=== PATIENT | male | born 1975 | race Caucasian/White ===

== ENCOUNTER → 2020-01-07 09:17 | Outpatient (BNVA) | payer OTHER, SELFPAY | PROVIDERS: PCP Internal Medicine; Referring Provider Internal Medicine; Visit Provider Orthopaedic Surgery | DX: Z76.89 Persons encountering health services in other specified circumstances (principal) ==

== ENCOUNTER → 2020-02-18 08:58 | Outpatient (BNVA) | payer OTHER, SELFPAY | PROVIDERS: PCP Internal Medicine; Referring Provider Internal Medicine; Visit Provider Orthopaedic Surgery | DX: Z76.89 Persons encountering health services in other specified circumstances (principal) ==

== ENCOUNTER 2020-02-22 08:00 | Outpatient (RCR) | payer OTHER, SELFPAY ==
--- NOTE | 2020-02-22 10:00 | MHC.PT.DC ---
[facility] [place] Office [place] Office [place] Office [address] Monica Schafer [address] [facility] [phone] F: [phone] F: [phone] F: [phone] F: [phone] Physical Therapy Discharge Report Diagnosis: ACL reconstruction L knee Date of Surgery: 10/14/19 Date of Evaluation: 10/22/19 Date of Discharge: 02/22/20 Treatments to Date: 35 Cancellations to Date: 0 No Shows to Date: 0 Discharge Status: Achieved Goals Improved Function Discharge Summary: Pt has achieved all goals set for him and is independent with all exercises. He is functionally independent and has returned to PLOF. Pt discharged from therapy today. Electronically signed by: Thais Alonso DPT Please sign and return to therapist. Thank you for your referral.
== END 2020-02-22 10:02 | disposition other institution (70) ==
LOC: HO.PT 08:00
PROVIDERS: PCP Internal Medicine; Visit Provider Physician Assistant
DX: S83.512D Sprain of anterior cruciate ligament of left knee, subsequent encounter (principal)
CPT/HCPCS: 97110; 97140; 97530

== ENCOUNTER → 2020-03-28 08:49 | Outpatient (BNVA) | payer OTHER, SELFPAY | PROVIDERS: PCP Internal Medicine; Visit Provider Orthopaedic Surgery ==

== ENCOUNTER → 2020-04-19 10:00 | Outpatient (BNVA) | payer OTHER, SELFPAY | PROVIDERS: Visit Provider Physician Assistant ==

== ENCOUNTER 2020-04-19 10:59 | Outpatient (REF) | payer OTHER, SELFPAY ==
--- NOTE | ~2020-04-19 | XR_ITS ---
EXAMINATION: XR RIBS, LEFT CLINICAL INFORMATION: Fall COMPARISON: None TECHNIQUE: 3 views of the left ribs were obtained. FINDINGS: Lungs are clear. No consolidation, pneumothorax, or pleural effusion. The cardiomediastinal silhouette and pulmonary vasculature are normal. No acute fracture is seen. There is slight cortical irregularity of the left anterior ninth rib questionable for old trauma. XR/XR ribs LT min 3V w CXR1V IMPRESSION: No evidence for acute disease in the chest. No acute rib fracture is seen.
== END 2020-04-19 11:00 | disposition home or self-care (01) ==
LOC: HO.XRAY 10:59
PROVIDERS: PCP Internal Medicine; Visit Provider Physician Assistant Medical
DX: S89.92XA Unspecified injury of left lower leg, initial encounter (principal); W19.XXXA Unspecified fall, initial encounter; X58.XXXA Exposure to other specified factors, initial encounter; Y93.9 Activity, unspecified; Y92.9 Unspecified place or not applicable; Y99.9 Unspecified external cause status
CPT/HCPCS: 71101

== ENCOUNTER → 2020-04-19 10:59 | Outpatient (BNVA) | payer OTHER, SELFPAY | PROVIDERS: Visit Provider Physician Assistant Medical | DX: S20.219A Contusion of unspecified front wall of thorax, initial encounter (principal); S93.492A Sprain of other ligament of left ankle, initial encounter; W00.0XXA Fall on same level due to ice and snow, initial encounter | CPT/HCPCS: 99203 ==

== ENCOUNTER → 2020-05-09 08:52 | Outpatient (BNVA) | payer OTHER, SELFPAY | PROVIDERS: Visit Provider Orthopaedic Surgery | DX: Z98.890 Other specified postprocedural states (principal) | CPT/HCPCS: 99212 ==

== ENCOUNTER 2020-06-07 07:41 | Outpatient (REF) | payer OTHER, SELFPAY ==
[2020-06-07 08:54] LABS: Basophils Percent Auto 0.5 % (0-2); Eosinophils Absolute Auto 0.2 X10*3/uL (0.0-0.4); Eosinophils Percent Auto 2.1 % (0-4); Hematocrit 47.9 % (42-52); Hemoglobin 15.7 g/dl (14.0-18.0); Imm Gran Abs Auto 0.02 X10*3/uL (0.00-0.03); Imm Gran Pct Auto 0.2 % (0.0-0.4); Lymphocytes Absolute Auto 2.7 X10*3/uL (1.2-4.9); Lymphocytes Percent Auto 31.7 % (20-40); MANUAL DIFF FLAG NO; Mean Corpuscular HGB Conc 32.8 g/dl (31.0-36.0); Mean Corpuscular Hemoglobin 30.2 pg (27.0-33.0); Mean Corpuscular Volume 92.1 fL (80-98); Mean Platelet Volume 10.8 fL (9.4-12.4); Monocytes Absolute Auto 0.9 X10*3/uL (0.1-1.2); Monocytes Percent Auto 10.9 % (2-11); Neutrophils Absolute Auto 4.6 X10*3/uL (2.0-8.3); Neutrophils Percent Auto 54.6 % (45-73); Platelet Count 295 X10*3/uL (160-400); Red Cell Distribution Width 12.3 % (11.0-16.0); White Blood Count 8.4 X10*3/uL (4.8-10.8)
[2020-06-07 09:16] LABS: Alanine Aminotransferase 12 U/L (0-40); Albumin Level 4.4 g/dL (3.5-5.0); Alkaline Phosphatase 70 U/L (39-117); Anion Gap 14 (12-20); Aspartate Amino Transferase 26 U/L (5-37); Bilirubin Total 0.9 mg/dL (0.0-1.0); Blood Urea Nitrogen 12 mg/dL (9-16); C Reactive Protein 0.03 mg/dL (< or = 0.50); Calcium 9.6 mg/dL (8.4-10.2); Carbon Dioxide 27 mmol/L (22-29); Chloride 101 mmol/L (96-108); Cholesterol 217 mg/dL; Estimated Glomerular Filt Rate > 60; Glucose Fasting 100 mg/dL (60-99); HDL Cholesterol 56 mg/dL; LDL Cholesterol Calculated 146 mg/dl; Lipase 20 U/L (8-78); Potassium 4.4 mmol/L (3.3-5.1); Sodium 138 mmol/L (135-145); Total Protein 7.6 g/dL (6.5-8.0); Triglycerides 76 mg/dL
[2020-06-07 09:41] LABS: Free T4 (Free Thyroxine) 0.85 ng/dL (0.71-1.85); Thyroid Stimulating Hormone 0.97 uIU/mL (0.32-4.0)
== END 2020-06-07 07:42 | disposition home or self-care (01) ==
LOC: HO.LAB 07:41
PROVIDERS: PCP Internal Medicine; Visit Provider Internal Medicine
DX: R00.2 Palpitations (principal); R63.4 Abnormal weight loss; L40.9 Psoriasis, unspecified; K21.9 Gastro-esophageal reflux disease without esophagitis; Z82.49 Family history of ischemic heart disease and other diseases of the circulatory system
CPT/HCPCS: 36415; 80053; 80061; 82550; 83690; 84439; 84443; 85025; 86140

== ENCOUNTER 2020-06-09 10:27 | Outpatient (REF) | payer OTHER, SELFPAY ==
--- NOTE | ~2020-06-09 | FL_ITS ---
EXAMINATION: XR GI SERIES CLINICAL INFORMATION: Epigastric pain. COMPARISON: None TECHNIQUE: Routine upper GI air-contrast study was performed upright and lying position. FINDINGS: Following oral administration of thick barium and effervescent granules, there is normal antegrade flow seen through the entire esophagus without any evidence of obstruction or narrowing. On placing patient supine and prone, the course, caliber and peristalsis of the stomach, duodenal bulb and sweep are normal. There is small gastroesophageal reflux in the distal esophagus. The mucosal pattern of the stomach, duodenal bulb and the sweep is normal. FLUOROSCOPY TIME: 2.0 minutes DOSE AREA PRODUCT: 37.466 uGy-m2 (microgray-meter squared) FL/FL upper GI series IMPRESSION: Mild gastroesophageal reflux without hiatal hernia. Rest of the upper GI air-contrast study is normal.
== END 2020-06-09 10:28 | disposition home or self-care (01) ==
LOC: HO.XRAY 10:27
PROVIDERS: PCP Internal Medicine; Visit Provider Internal Medicine
DX: R10.13 Epigastric pain (principal)
CPT/HCPCS: 74240

== ENCOUNTER 2020-08-16 09:55 | Outpatient (REF) | payer OTHER, SELFPAY ==
--- NOTE | ~2020-08-16 | US_ITS ---
EXAMINATION: US ABDOMEN COMPLETE CLINICAL INFORMATION: Epigastric pain. COMPARISON: None TECHNIQUE: Real-time imaging of the abdominal viscera. FINDINGS: PANCREAS: The head and the body of the pancreas are homogeneous in echotexture. The tail is obscured by overlying gas. ABDOMINAL AORTA: The proximal, mid, and distal segments are normal in caliber. INFERIOR VENA CAVA: Visualized portions are normal. LIVER: Normal. The liver is normal in size. The liver contour is normal. Parenchymal echogenicity is normal. No focal hepatic lesion. There is no intrahepatic biliary duct dilatation seen. GALLBLADDER: Gallbladder wall thickness is 0.2 cm. The gallbladder is physiologically distended without evidence of stones, sludge, polyps, wall thickening or pericholecystic fluid. COMMON BILE DUCT: Normal in caliber measuring 0.3 cm in diameter. RIGHT KIDNEY: There is an anechoic cyst in the midpole medially with septations measuring 2.1 x 1.6 x 1.6 cm. No hydronephrosis or renal calculi. The kidney measures 10.0 cm in maximum dimension. LEFT KIDNEY: Normal. No hydronephrosis. No renal calculi or focal parenchymal lesions. The kidney measures 10.9 cm in maximum dimension. SPLEEN: Normal. The spleen measures 12.4 cm in maximum dimension. FREE FLUID: None. US/US abdomen complete IMPRESSION: Complex cyst midpole right kidney. The tail of the pancreas is not well visualized. The rest of the abdominal ultrasound is unremarkable.
== END 2020-08-16 09:56 | disposition home or self-care (01) ==
LOC: HO.US 09:55
PROVIDERS: PCP Internal Medicine; Visit Provider Internal Medicine
DX: R10.13 Epigastric pain (principal)
CPT/HCPCS: 76700

== ENCOUNTER 2020-08-28 07:42 | Day surgery (SDC) | payer OTHER, SELFPAY ==
--- NOTE | 2020-08-24 09:50 | HO.ANESPROP2 ---
HPI - Anesthesia Eval Consult details Narrative: 44yo M for Upper Endoscopy PMFSH Active Problems Active Problems: All Active Problems (Updated 04/19/20 @ 11:54 by ELY Diaz) Fall (Acute) Internal derangement of left knee (Acute) S/P ACL reconstruction (Acute) Deficiency of anterior cruciate ligament of left knee (Acute) Past Medical History Medical History Internal derangement of left knee Surgical History Surgical History History of appendectomy S/P ACL reconstruction Social History Social History Patient Tobacco Use Status: Former Tobacco user Use of substances other than those prescribed or required for medical reasons: No Have you been hit, kicked, punched, or otherwise hurt by someone within the past year? If so, by whom?: No Are you DNR?: No Advance Directives: No Advance Directives Date on File: 12/09/19 Current occupational status: employed Current occupation: [employer] - Right [employer] Meds Allergies Allergy/AdvReac Type Severity Reaction Status Date / Time bee pollen [BEE STINGS] Allergy Unknown WEAKNESS,SW Verified 08/28/20 09:34 ELLING bees Allergy Unknown ANAPHYLACTIC Uncoded 08/28/20 09:34 REACTION SEAFOOD Allergy Unknown LOCALIZED Uncoded 08/28/20 09:34 TO ABDOMEN seasonal Allergy Unknown HAYFEVER Uncoded 08/28/20 09:34 SEASONAL ALLERGIES Allergy Unknown HAYFEVER Uncoded 08/28/20 09:34 shellfish Allergy Unknown INDIGESTION Uncoded 08/28/20 09:34 Home Medications Medication Instructions Recorded Confirmed Last Taken Type adalimumab SUBCUT 01/06/20 Unknown History Exam Exam Date and Time: August 24, 2020 0950 Assessment and Plan Assessment Anesthesia Assessment: Chart Reviewed
[2020-08-28 08:56] VITALS: BP 124/86; PULSE 90; RESP 18; TEMP 37.2; O2SAT 98; BMI 25.7
[2020-08-28] MEDS: Lactated Ringers 1,000 ML 100 ML IVCONT (09:15)
--- NOTE | 2020-08-28 09:53 | HO.ANESPROP2 ---
[facility] Active Problems Active Problems: All Active Problems (Updated 04/19/20 @ 11:54 by ELY Diaz) Fall (Acute) Internal derangement of left knee (Acute) S/P ACL reconstruction (Acute) Deficiency of anterior cruciate ligament of left knee (Acute) Past Medical History Medical History Internal derangement of left knee Family History Family history of problems with anesthesia: No Surgical History Surgical History History of appendectomy S/P ACL reconstruction History of Problems with Anesthesia: Yes (PONV) Social History Social History Patient Tobacco Use Status: Former Tobacco user Use of substances other than those prescribed or required for medical reasons: No Have you been hit, kicked, punched, or otherwise hurt by someone within the past year? If so, by whom?: No Are you DNR?: No Advance Directives: No Advance Directives Date on File: 12/09/19 Current occupational status: employed Current occupation: [employer] - Right [employer]ed Meds Allergies Allergy/AdvReac Type Severity Reaction Status Date / Time bee pollen [BEE STINGS] Allergy Unknown WEAKNESS,SW Verified 08/28/20 09:34 ELLING bees Allergy Unknown ANAPHYLACTIC Uncoded 08/28/20 09:34 REACTION SEAFOOD Allergy Unknown LOCALIZED Uncoded 08/28/20 09:34 TO ABDOMEN seasonal Allergy Unknown HAYFEVER Uncoded 08/28/20 09:34 SEASONAL ALLERGIES Allergy Unknown HAYFEVER Uncoded 08/28/20 09:34 shellfish Allergy Unknown INDIGESTION Uncoded 08/28/20 09:34 Active Medications: Current Medications Generic Name Dose Route Start Last Admin Trade Name Freq PRN Reason Stop Dose Admin Lactated Ringer's 1,000 mls @ 100 mls/hr 08/28/20 06:30 08/28/20 09:15 Lr IVCONT 100 mls/hr .Q10H GURINDER Administration Sodium Biphosphate/Sodium Phosphate 133 ml 08/28/20 06:16 Sodium Phosphate,[place]-Dibasic 133 Ml Enema MD ONCE PRN Poor Colonoscopy Prep Results Home Medications Medication Instructions Recorded Confirmed Last Taken Type adalimumab SUBCUT 10/29/20 Unknown History Exam Exam Date and Time: August 28, 2020 0953 Height,Weight and Vital Signs: Height 6 ft Weight 86.183 kg Last Vital Signs Temp 98.9 F 08/28/20 08:56 Pulse 90 08/28/20 08:56 Resp 18 08/28/20 08:56 BP 124/86 08/28/20 08:56 Pulse Ox 98 08/28/20 08:56 Airway Mallampati Class: I TM Dist: >3cm Neck ROM: Full Loose/Missing/Broken Teeth: No Assessment and Plan Assessment Anesthesia Assessment: Anesthesia Plan Discussed and Chart Reviewed Final Anesthetic Review NPO: Yes ASA Class: II Final Preanesthetic Review: No Changes in Pt Med Stat, Meds/Allgs Chart Reviewed, Consent Obtained/Reviewed and Anes Risks/Benef Reviewed Patient Risk: Low Procedure Risk: Intermediate Anesthetic Plan Anesthetic Plan: MAC: and Agree w/ Assess. and Plan Disposition: Standard PACU
[2020-08-28 10:19] VITALS: BP 143/90; PULSE 82; RESP 18; TEMP 36.9; O2SAT 98
--- NOTE | 2020-08-28 10:27 | PM.OP ---
Brief Operative Note Date of Service: 08/28/20 Pre-op diagnosis: GERD Post-op diagnosis: other (Hiatal hernia, GERD, R/O Gastritis) Procedure: EGD with biopsies Surgeon: Robert Snider Anesthesia: MAC Was an Business Management Manager used for this Procedure?: No Estimated blood loss (mL): 3.0 Pathology: other (A. Gastric antrum B. EG Junction at 40cm) Condition: stable Disposition: PACU
[2020-08-28] MEDS: Acetaminophen 325 MG TABLET 650 MG PO (10:29)
[2020-08-28 10:34] VITALS: BP 123/79; PULSE 76; RESP 14; TEMP 36.9; O2SAT 100
--- NOTE | 2020-08-28 20:57 | OP_ITS ---
SURGEON: Robert Snider MD INDICATIONS: The patient presents for evaluation of gastroesophageal reflux and abdominal discomfort. Full consent has been obtained from him for this, including risks of bleeding and perforation. PREOPERATIVE DIAGNOSIS: Gastroesophageal reflux and abdominal discomfort. POSTOPERATIVE DIAGNOSIS: Gastroesophageal reflux and abdominal discomfort, small hiatal hernia, rule out gastritis and/or H pylori. PROCEDURE PERFORMED: Esophagogastroduodenoscopy with biopsies. ESTIMATED BLOOD LOSS: COMPLICATIONS: ANESTHESIA: Monitored anesthesia care. ASSISTANTS: SPECIMENS: DESCRIPTION OF PROCEDURE: The patient was placed in the left lateral decubitus position. The Olympus video gastroscope was passed in the posterior oropharynx and upper esophagus under direct vision. The scope was passed slowly to the distal esophagus. The gastroesophageal junction appeared at 40 cm. There was some slight irregularity consistent with reflux, but there was no evidence of esophagitis nor any definitive evidence of Tinoco's mucosa. There was a small hiatal hernia. The scope was advanced to the pylorus and the duodenum was cannulated to the descending portion. The duodenum including the bulb was carefully inspected and appeared normal without mass or ulceration. The scope was withdrawn back to the stomach. The gastric antrum had some mild areas of erythema, but no erosions or ulceration. There was good peristalsis. Biopsies were obtained from the gastric antrum. The scope was retroflexed visualizing the proximal stomach carefully, which appeared normal, without any sign of mass or ulceration. The scope was straightened and withdrawn back to the esophagus. Biopsies were obtained at the EG junction at 40 cm. Proximal to this, the esophageal mucosa appeared normal. The scope was withdrawn from the patient. He tolerated the procedure well and was returned to the recovery area in stable condition. IMPRESSION: 1. Small hiatal hernia, gastroesophageal reflux. 2. Rule out gastritis and/or Helicobacter pylori. PLAN: The results of the biopsy will be checked. He will continue his omeprazole 20 mg b.i.d. His recent abdominal ultrasound was negative for gallstones but did show a cyst in the right kidney that is described as complex . I did review this with the patient today and he has seen the result himself on the [facility] portal as well. I have advised him that he will need to follow up with Dr. Syed as to whether or not he would need a followup ultrasound and/or a urology consultation in regard to the renal cyst. This has been discussed with his as well. From a GI standpoint, he appears to be doing well. I did advise him that he can see me again in 2 to 3 months for a followup visit. If Helicobacter pylori is present in the gastric biopsies, I would not necessarily treat that and would rather see how he is doing from a clinical standpoint first since there is no sign of ulcer disease. This has all been discussed with his . MD MARCELA Cole/AMANDA / [id number] MTDD
== END 2020-08-28 11:41 | disposition home or self-care (01) ==
PROVIDERS: PCP Internal Medicine; Visit Provider Internal Medicine
PROC: 0DJ08ZZ Inspection of Upper Intestinal Tract, Via Natural or Artificial Opening Endoscopic (ICD-10-PCS; CPT 43235; principal; 2020-08-28 09:10)
DX: K21.9 Gastro-esophageal reflux disease without esophagitis (principal); K22.70 Barrett's esophagus without dysplasia; K44.9 Diaphragmatic hernia without obstruction or gangrene; I10 Essential (primary) hypertension; N28.1 Cyst of kidney, acquired; Z79.899 Other long term (current) drug therapy; Z87.891 Personal history of nicotine dependence
CPT/HCPCS: 43239; 88305; 88342; J3010

== ENCOUNTER 2020-12-14 14:10 | Outpatient (REF) | payer OTHER, SELFPAY ==
--- NOTE | ~2020-12-14 | MR_ITS ---
EXAMINATION: MR ABDOMEN WITHOUT AND WITH CONTRAST CLINICAL INFORMATION: Follow up complex right renal cyst. COMPARISON: Previous renal ultrasound August 2020. TECHNIQUE: MR abdomen was performed without and with use of 9 mL intravenous Gadavist gadolinium contrast. Postcontrast images are performed in multiphase dynamic sequences. Imaging was performed in 3 planes. FINDINGS: LUNG BASES: The visualized lung bases are unremarkable. LIVER, GALLBLADDER, AND BILIARY TREE: The liver is normal in size and contour. There is slight signal loss in the liver on out of phase sequences suggestive of mild fatty infiltration. There are 2 simple cysts seen in the posterior segment of the right lobe of the liver measuring 5 mm. No other focal liver lesion is seen. The gallbladder is normal. There is no intra or extrahepatic biliary duct dilatation. PANCREAS: Unremarkable. The main pancreatic duct is normal. SPLEEN: Normal. ADRENAL GLANDS: Normal. KIDNEYS AND URETERS: The kidneys are normal in size, shape, and enhance symmetrically. There is a 1.6 x 2 cm cyst in the lower pole of the right kidney. There is low signal on T1-weighted sequences, high signal on T2-weighted sequences and demonstrates a single thin nonenhancing septation. No mural nodule is seen. No hydronephrosis. No perinephric stranding. GASTROINTESTINAL TRACT: There is mild diverticulosis of the colon. No bowel obstruction. No ascites or fluid collection. ABDOMINAL WALL: No significant hernia is appreciated. LYMPH NODES: No lymphadenopathy. VASCULAR: Unremarkable. OSSEOUS STRUCTURES: There is degenerative disc disease of the spine. MR/MR abdomen wo/w con IMPRESSION: 1.6 cm minimally complex cyst in the lower pole of the right kidney with single thin nonenhancing septation or Bosniak type II cyst. This is benign and no imaging follow-up is needed. Small simple liver cysts. Mild fatty infiltration of the liver.
[2020-12-14 14:57] LABS: Anion Gap 13 (12-20); Blood Urea Nitrogen 15 mg/dL (9-16); Calcium 9.6 mg/dL (8.4-10.2); Carbon Dioxide 27 mmol/L (22-29); Chloride 104 mmol/L (96-108); Estimated Glomerular Filt Rate > 60; Glucose Random 107 mg/dL (60-115); Potassium 4.3 mmol/L (3.3-5.1); Sodium 140 mmol/L (135-145)
== END 2020-12-14 14:11 | disposition home or self-care (01) ==
LOC: HO.MRI 14:10
PROVIDERS: PCP Internal Medicine; Visit Provider Internal Medicine
DX: N28.1 Cyst of kidney, acquired (principal)
CPT/HCPCS: 36415; 74183; 80048; A9585

== ENCOUNTER 2021-04-08 15:42 | Emergency (ER) | payer OTHER, SELFPAY ==
[2021-04-08 16:12] VITALS: BP 137/87; PULSE 83; RESP 18; TEMP 36.6; O2SAT 97; BMI 26.4
--- NOTE | 2021-04-08 17:29 | ED_ITS ---
HPI - Extremity Problem General Chief complaint: Extremity Injury, Upper Stated complaint: laceration/wound Time Seen by Provider: 04/08/21 16:24 Source: patient Mode of arrival: ambulatory Limitations: no limitations History of Present Illness HPI Narrative: Patient is a 45 year old male presenting to the emergency department today with a left middle finger laceration. Patient states that earlier today, he was cutting open a package with a razor knife when he cut his left middle finger. Patient denies any other injury from the incident Patient denies any dizziness, numbness, tingling, lightheadedness, abdominal pain, nausea, vomiting, fever, chills, blurry vision, double vision, loss of vision, chest pain, difficulty breathing, shortness of breath, back pain, night sweats, pain with urination, increased urinary frequency, increased urinary urgency, blood in his urine or stool, syncope or a near syncopal episode, bowel incontinence, bladder incontinence, bowel retention, bladder retention, or any other complaints at this time. MD Complaint: extremity pain Onset (ago): hour(s) Pain Consistency: constant Location: left (Middle finger) Severity scale (1-10): 3 Radiation: none Relieving factors: nothing Exacerbating factors: nothing Associated symptoms: denies other symptoms Related Data Home Medications Medication Instructions Recorded Confirmed adalimumab [Humira] SUBCUT 01/06/20 Allergies Allergy/AdvReac Type Severity Reaction Status Date / Time bee pollen [BEE Allergy Unknown WEAKNESS,SW Verified 04/08/21 16:12 STINGS] ELLING bees Allergy Unknown ANAPHYLACTIC Uncoded 04/08/21 16:12 REACTION SEAFOOD Allergy Unknown LOCALIZED Uncoded 04/08/21 16:12 TO ABDOMEN seasonal Allergy Unknown HAYFEVER Uncoded 04/08/21 16:12 SEASONAL ALLERGIES Allergy Unknown HAYFEVER Uncoded 04/08/21 16:12 shellfish Allergy Unknown INDIGESTION Uncoded 04/08/21 16:12 Review of Systems Verdana 4l Constitutional: Verdana 4d Verdana 4d Constitutional: Verdana 4d Reports no additional constitutional complaints, Denies chills, Denies fever(s) and Denies night sweats Verdana 4l Eyes: Verdana 4d Verdana 4d Eyes: Verdana 4d Reports no additional eye complaints, Denies blurry vision, Denies change in vision, Denies diplopia, Denies eye discharge, Denies loss of vision and Denies eye pain Verdana 4l ENT: Verdana 4d Denies dizziness Verdana 4l Cardiovascular: Verdana 4d Verdana 4d Cardiovascular: Verdana 4d Reports no additional cardiovascular complaints, Denies chest pain, Denies lightheadedness, Denies Loss of Consciousness and Denies dyspnea Verdana 4l Respiratory: Verdana 4d Verdana 4d Respiratory: Verdana 4d Reports no additional respiratory complaints and Denies dyspnea Verdana 4l Gastrointestinal: Verdana 4d Verdana 4d Gastrointestinal: Verdana 4d Reports no additional gastrointestinal complaints, Denies abdominal pain, Denies melena, Denies hematochezia, Denies change in bowel habits and Denies change in stool character Verdana 4l Genitourinary: Verdana 4d Verdana 4d Genitourinary: Verdana 4d Reports no additional male genitourinary complaints, Denies hematuria, Denies oliguria, Denies difficulty urinating, Denies dysuria, Denies urinary frequency, Denies urinary hesitancy, Denies urinary incontinenceincontinence and Denies urinary urgency Musculoskeletal: Musculoskeletal: Reports no additional musculoskeletal complaints, Denies numbness and Denies tingling Integumentary/Breasts: Comments: Laceration of the left middle finger Neurologic: Denies dizziness, Denies loss of vision, Denies numbness and Denies tingling Psychiatric: Psychiatric: Reports no additional psychiatric complaints Endocrine: Endocrine: Reports no additional endocrine complaints Hematologic/Lymphatic: Hematologic/Lymphatic: Reports no additional hematologic/lymphatic complaints Allergic/Immunologic: Allergic/Immunologic: Reports no additional allergic/immunologic complaints [facility] Past Medical History Attestation statement: The following information was validated with the patient. Source: old records reviewed Medical History Internal derangement of left knee Surgical History History of appendectomy S/P ACL reconstruction Social History Social History Patient Tobacco Use Status: Former Tobacco user Advance Directives: Yes Advance Directives on File: Yes Advance Directives Date on File: 12/09/19 Current occupational status: employed Current occupation: [employer] - Right Handed Physical Exam Verdana 4l Vital Signs: Verdana 4d Verdana 4d Vital Signs: Verdana 4d Verdana 4Bd Last Vital Signs Verdana 4d Driller Operator New 4d Driller Operator New 4d Temp 97.9 F 04/08/21 16:12 Driller Operator New 4d Pulse 83 04/08/21 16:12 Driller Operator New 4d Resp 18 04/08/21 16:12 BP 137/87 04/08/21 16:12 Pulse Ox 97 04/08/21 16:12 BMI result Body Mass Index 26.4 Skin: Other: 0.25 cm laceration to the palmar aspect of the left middle finger, no active bleeding MDM - Extremity (Nontraumatic) MDM Narrative Medical decision making narrative: Patient is a 45 year old male presenting to the emergency department today with a laceration to his left 3rd finger. Patient's physical exam showed 0.25 cm laceration of ulnar aspect of the left middle finger, no active bleeding. I explained my physical exam findings to the patient. I answered all questions asked by the patient. Patient's the laceration was repaired with Dermabond, per procedure note, without incident. Patient's PMS was intact prior to and after the procedure. I stressed the importance of the patient not getting the affected area wet for at least 7 days. stressed the importance of the patient taking his regular medication as prescribed. I stressed the importance of the patient following up with his primary care provider. I stressed the importance of the patient returning to the emergency department immediately if his symptoms were to worsen or if he were to develop any dizziness, shortness of breath, difficulty breathing, chest pain, blurry vision, loss of vision, nausea, vomiting, abdominal pain, fever, chills, back pain, or any other complaints. Patient verbalized agreement and understanding with this treatment plan and discharge. Differential Diagnosis Differential diagnosis: Unlikely cellulitis (Laceration, abrasion, finger injury) Medical Records Attestation: I reviewed the patient's medical records. Procedures Laceration Laceration 1: Site: hand (left middle finger) Side (If applicable): left Size (cm): 0.25 Description: linear Depth: simple, single layer Pre-repair: irrigated extensively Skin layer closed with: other (durabond) Discharge Plan Discharge Clinical Impression: Laceration of finger Patient Disposition: Home, Self-Care Instructions: Laceration (DC), Finger Laceration (ED) Additional Instructions: Do NOT get the affected area wet for at least 7 days. Referrals: Branden Syed MD [Primary Care Provider] - 2 days Interventions: ED Discharge Assessment Last Done: 04/08/21 18:21 Print Language: Tuvaluan
--- NOTE | 2021-04-08 18:32 | PC.NURSE ---
PT LAC CLEANED AND DERMADONED BY ELY CALLAHAN PACKAGE DYEING MACHINE OPERATOR.
== END 2021-04-08 18:32 | disposition home or self-care (01) ==
PROVIDERS: Emergency Provider Internal Medicine; PCP Internal Medicine
DX: S61.213A Laceration without foreign body of left middle finger without damage to nail, initial encounter (principal); M79.645 Pain in left finger(s); W26.9XXA Contact with unspecified sharp object(s), initial encounter; Y93.9 Activity, unspecified; Y92.9 Unspecified place or not applicable; Y99.9 Unspecified external cause status; Z87.891 Personal history of nicotine dependence
CPT/HCPCS: 12001; 99283

== ENCOUNTER 2022-04-16 09:35 | Outpatient (REF) | payer OTHER, SELFPAY ==
[2022-04-16 10:47] LABS: MANUAL DIFF FLAG NO
[2022-04-16 10:55] LABS: Basophils Absolute Auto 0.1 X10*3/uL (0.0-0.2); Basophils Percent Auto 0.8 % (0-2); Eosinophils Absolute Auto 0.2 X10*3/uL (0.0-0.4); Eosinophils Percent Auto 2.2 % (0-4); Hematocrit 45.7 % (42.0-52.0); Hemoglobin 15.3 g/dl (14.0-18.0); Imm Gran Abs Auto 0.02 X10*3/uL (0.00-0.03); Imm Gran Pct Auto 0.3 % (0.0-0.4); Lymphocytes Absolute Auto 2.4 X10*3/uL (1.2-4.9); Lymphocytes Percent Auto 32.6 % (20-40); Mean Corpuscular HGB Conc 33.5 g/dl (31.0-36.0); Mean Corpuscular Hemoglobin 30.5 pg (27.0-33.0); Mean Corpuscular Volume 91.2 fL (80.0-98.0); Mean Platelet Volume 9.9 fL (9.4-12.4); Monocytes Absolute Auto 0.8 X10*3/uL (0.1-1.2); Monocytes Percent Auto 10.8 % (2-11); Neutrophils Percent Auto 53.3 % (45-73); Platelet Count 279 X10*3/uL (160-400); Red Blood Count 5.01 X10*6/uL (4.60-5.80); Red Cell Distribution Width 12.7 % (11.0-16.0); White Blood Count 7.4 X10*3/uL (4.8-10.8)
[2022-04-16 11:30] LABS: Alanine Aminotransferase 17 U/L (0-40); Albumin Level 4.4 g/dL (3.5-5.0); Alkaline Phosphatase 65 U/L (39-117); Anion Gap 17 (12-20); Aspartate Amino Transferase 28 U/L (5-37); Bilirubin Total 0.9 mg/dL (0.0-1.0); Blood Urea Nitrogen 15 mg/dL (9-16); Calcium 9.5 mg/dL (8.4-10.2); Carbon Dioxide 25 mmol/L (22-29); Chloride 104 mmol/L (96-108); Cholesterol 222 mg/dL; Estimated Glomerular Filt Rate > 60; Glucose Fasting 87 mg/dL (60-99); HDL Cholesterol 53 mg/dL; LDL Cholesterol Calculated 149 mg/dl; Potassium 4.7 mmol/L (3.3-5.1); Sodium 141 mmol/L (135-145); Total Protein 7.4 g/dL (6.5-8.0); Triglycerides 102 mg/dL
[2022-04-16 11:47] LABS: Free T4 (Free Thyroxine) 0.91 ng/dL (0.71-1.85)
== END 2022-04-16 09:36 | disposition home or self-care (01) ==
LOC: HO.10HDL 09:35
PROVIDERS: Visit Provider Internal Medicine
DX: Z00.00 Encounter for general adult medical examination without abnormal findings (principal)
CPT/HCPCS: 36415; 80053; 80061; 84439; 85025

== ENCOUNTER 2022-06-03 10:32 | Day surgery (SDC) | payer OTHER, SELFPAY ==
[2022-06-03 07:11] VITALS: BMI 29.1
[2022-06-03 10:33] VITALS: BP 126/87; PULSE 88; RESP 20; TEMP 36.1; O2SAT 97
[2022-06-03] MEDS: Lactated Ringers 1,000 ML 50 ML IVCONT (10:55)
--- NOTE | 2022-06-03 11:11 | P.CONAN_ITS ---
HPI - Anesthesia Eval Consult details Narrative: for colon screen COUNTS INCLUDE 234 BEDS AT THE [facility] Active Problems Active Problems: All Active Problems (Updated 05/31/22 @ 12:11 by Karie Rodriguez RN) Deficiency of anterior cruciate ligament of left knee (Acute) Fall (Acute) Internal derangement of left knee (Acute) S/P ACL reconstruction (Acute) Past Medical History Medical History (Updated 05/31/22 @ 12:11 by Karie Rodriguez RN) ADHD GERD (gastroesophageal reflux disease) HTN (hypertension) Internal derangement of left knee Prophylactic gland removal Psoriasis Family History Family history of problems with anesthesia: No Surgical History Surgical History (Updated 05/31/22 @ 12:11 by Karie Rodriguez RN) History of appendectomy History of fundoplication S/P ACL reconstruction History of Problems with Anesthesia: No (PONV) Social History Social History Patient Tobacco Use Status: Former Tobacco user Are you DNR?: No Advance Directives: Yes Advance Directives on File: Yes Advance Directives Date on File: 12/09/19 Current occupational status: employed Current occupation: [employer] Allergies Allergy/AdvReac Type Severity Reaction Status Date / Time bee pollen [BEE STINGS] Allergy Unknown Anaphylaxis Verified 05/31/22 12:06 seafood Allergy ABD Verified 05/31/22 12:06 pain/indegestion Seasonal Allergies Allergy hayfever Verified 05/31/22 12:06 Active Medications: Current Medications Lactated Ringer's (Lr) 1,000 mls @ 50 mls/hr IVCONT .Q20H GURINDER Last Admin: 06/03/22 10:55 Dose: 50 mls/hr Sodium Biphosphate/Sodium Phosphate (Sodium Phosphate,[place]umpkin-Dibasic 133 Ml Enema) 133 ml CA ONCE PRN PRN Reason: Poor Colonoscopy Prep Results Home Medications Medication Instructions Recorded Confirmed Last Taken Type adalimumab [Humira] subcut 01/06/20 Unknown History atorvastatin 10 mg tablet 05/31/22 Unknown History guselkumab 100 mg/mL subcutaneous mg subcut 05/31/22 Unknown History syringe (Tremfya) lisinopril 5 mg tablet 5 mg PO DAILY 05/31/22 05/31/22 Unknown History losartan 50 mg tablet 05/31/22 06/03/22 History omeprazole 20 mg capsule,delayed PO 05/31/22 Unknown History release prednisolone acetate 1 % eye 1 drp ophthalmic-Right QID 05/31/22 05/31/22 Unknown History drops,suspension Exam Exam Date and Time: June 03, 2022 1111 Height,Weight and Vital Signs: Height 5 ft 11.5 in Weight 96.162 kg Last Vital Signs Temp 97 F 06/03/22 10:33 Pulse 88 06/03/22 10:33 Resp 20 06/03/22 10:33 BP 126/87 06/03/22 10:33 Pulse Ox 97 06/03/22 10:33 O2 Del Method Room Air 06/03/22 10:33 Airway Mallampati Class: II TM Dist: >3cm Neck ROM: Full Heart: rrr Lungs: cta Assessment and Plan Assessment Anesthesia Assessment: Anesthesia Plan Discussed and Chart Reviewed Final Anesthetic Review Family History of Problems with Anesthesia: No History of Problems with Anesthesia: No (PONV) NPO: Yes ASA Class: II Final Preanesthetic Review: No Changes in Pt Med Stat, Meds/Allgs Chart Reviewed, Consent Obtained/Reviewed and Anes Risks/Benef Reviewed Patient Risk: Low Procedure Risk: Low Anesthetic Plan Anesthetic Plan: MAC: Disposition: Standard PACU
--- NOTE | 2022-06-03 12:46 | P.BOP_ITS ---
Brief Operative Note Date of Service: 06/03/22 Pre-op diagnosis: Screening Post-op diagnosis: other (Polyp) Procedure: Colonoscopy to the cecum and TI with bx/removal of polyp Surgeon: Robert Snider Anesthesia: MAC Was an Billing Customer Service Representative used for this Procedure?: No Estimated blood loss (mL): 2.0 Pathology: other (A. Polyp at 40cm) Condition: stable Disposition: PACU
[2022-06-03 12:47] VITALS: BP 124/89; PULSE 92; RESP 12; TEMP 36.6; O2SAT 97
[2022-06-03 13:02] VITALS: BP 129/90; PULSE 77; RESP 12; TEMP 36.6; O2SAT 99
--- NOTE | 2022-06-03 14:39 | OP_ITS ---
DATE OF SERVICE: 06/03/2022 SURGEON: Robert Snider MD INDICATIONS: The patient presents for evaluation of colorectal cancer screening. Full consent has been obtained from him for this, including risks of bleeding and perforation. PREOPERATIVE DIAGNOSIS: POSTOPERATIVE DIAGNOSIS: PROCEDURE PERFORMED: Colonoscopy to the cecum and terminal ileum with biopsy and removal of polyp. ESTIMATED BLOOD LOSS: COMPLICATIONS: ANESTHESIA: Monitored anesthesia care. ASSISTANTS: SPECIMENS: PREOPERATIVE DIAGNOSES: Colorectal cancer screening. POSTOPERATIVE DIAGNOSES: Colorectal cancer screening, small colon polyp, internal hemorrhoids. DESCRIPTION OF PROCEDURE: The patient was placed in the left lateral decubitus position. The digital rectal exam revealed no abnormalities. The Olympus video pediatric colonoscope was then entered into the rectum and advanced easily to the cecum. Once in the cecum, I did identify a normal-appearing cecal pouch with appendiceal orifice and a normal-appearing ileocecal valve. The terminal ileum was cannulated and appeared normal. The scope was withdrawn back in the colon. The entire cecum and ileocecal valve appeared normal. The scope was slowly withdrawn assessing all mucosal surface carefully. Preparation was excellent. At 40 cm, there was an approximately 4 mm polyp, which was biopsied and completely covered with cold biopsy forceps. I did not visualize any other polyps, colitis, nor angiodysplasia. In the rectum, the scope was retroflexed visualizing internal hemorrhoids, but no other pathology. The rectal mucosa appeared normal. Scope was straightened and withdrawn from the patient. He tolerated the procedure well and was returned to the recovery area in stable condition. IMPRESSION: 1. Colon polyps. 2. Internal hemorrhoids. PLAN: The results of the pathology will be checked. If this is a tubular adenoma, I would recommend a followup colonoscopy in in 5 years. If it is only hyperplastic, I would recommend a followup colonoscopy in 10 years. I will see him in 2023 for a followup endoscopy in regard to his history of reflux and [place] esophagus. He would otherwise see me on a p.r.n. basis. He was advised not to use any aspirin or NSAIDs for 1 week. MD MARCELA Cole/AMANDA / [id number]
== END 2022-06-03 14:52 | disposition home or self-care (01) ==
PROVIDERS: PCP Internal Medicine; Visit Provider Internal Medicine
PROC: 0DJD8ZZ Inspection of Lower Intestinal Tract, Via Natural or Artificial Opening Endoscopic (ICD-10-PCS; CPT 45378; principal; 2022-06-03 11:40)
DX: Z12.11 Encounter for screening for malignant neoplasm of colon (principal); D12.5 Benign neoplasm of sigmoid colon; K64.8 Other hemorrhoids; K21.9 Gastro-esophageal reflux disease without esophagitis; K22.70 Barrett's esophagus without dysplasia; I10 Essential (primary) hypertension; L40.9 Psoriasis, unspecified; J30.2 Other seasonal allergic rhinitis; F90.2 Attention-deficit hyperactivity disorder, combined type; Z79.899 Other long term (current) drug therapy; Z87.891 Personal history of nicotine dependence
CPT/HCPCS: 45380; 88305

== ENCOUNTER 2024-01-05 12:03 | Outpatient (REF) | payer BC, SELFPAY ==
[2024-01-05 12:26] LABS: MANUAL DIFF FLAG NO
[2024-01-05 13:02] LABS: Basophils Absolute Auto 0.1 X10*3/uL (0.0-0.2); Basophils Percent Auto 0.6 % (0-2); Eosinophils Absolute Auto 0.2 X10*3/uL (0.0-0.4); Eosinophils Percent Auto 1.9 % (0-4); Hematocrit 45.7 % (42.0-52.0); Hemoglobin 15.2 g/dl (14.0-18.0); Imm Gran Abs Auto 0.03 X10*3/uL (0.00-0.03); Imm Gran Pct Auto 0.3 % (0.0-0.4); Lymphocytes Absolute Auto 2.5 X10*3/uL (1.2-4.9); Lymphocytes Percent Auto 28.1 % (20-40); Mean Corpuscular HGB Conc 33.3 g/dl (31.0-36.0); Mean Corpuscular Hemoglobin 30.7 pg (27.0-33.0); Mean Corpuscular Volume 92.3 fL (80.0-98.0); Mean Platelet Volume 10.6 fL (9.4-12.4); Monocytes Absolute Auto 0.8 X10*3/uL (0.1-1.2); Monocytes Percent Auto 9.3 % (2-11); Neutrophils Absolute Auto 5.3 x10*3/uL (2.0-8.3); Neutrophils Percent Auto 59.8 % (45-73); Platelet Count 252 X10*3/uL (160-400); Red Blood Count 4.95 X10*6/uL (4.60-5.80); Red Cell Distribution Width 12.7 % (11.0-16.0); White Blood Count 8.9 X10*3/uL (4.8-10.8)
[2024-01-05 13:42] LABS: Alanine Aminotransferase 28 U/L (0-40); Albumin Level 4.7 g/dL (3.5-5.0); Alkaline Phosphatase 62 U/L (39-117); Anion Gap 13 (12-20); Aspartate Amino Transferase 43 U/L (5-37); Bilirubin Total 0.9 mg/dL (0.0-1.0); Blood Urea Nitrogen 13 mg/dL (9-16); Calcium 9.8 mg/dL (8.4-10.2); Carbon Dioxide 27 mmol/L (22-29); Chloride 101 mmol/L (96-108); Estimated Glomerular Filt Rate > 60; Glucose Random 90 mg/dL (60-115); Potassium 3.8 mmol/L (3.3-5.1); Sodium 137 mmol/L (135-145); Total Protein 8.1 g/dL (6.5-8.0)
[2024-01-05 13:43] LABS: Cholesterol 179 mg/dL (<200); HDL Cholesterol 57 mg/dL (>40); LDL Cholesterol Calculated 108 mg/dL (<100); Triglycerides 72 mg/dL (<150)
[2024-01-05 14:04] LABS: Prostate Specific Antigen 0.12 ng/mL (<0.05-4.0)
== END 2024-01-05 12:04 | disposition home or self-care (01) ==
LOC: HO.LAB 12:03
PROVIDERS: Absent Provider Internal Medicine; PCP Internal Medicine; Visit Provider Dermatology
DX: I10 Essential (primary) hypertension (principal); E78.00 Pure hypercholesterolemia, unspecified; L40.0 Psoriasis vulgaris; Z12.5 Encounter for screening for malignant neoplasm of prostate
CPT/HCPCS: 36415; 80053; 80061; 84153; 85025

== ENCOUNTER 2024-05-19 14:44 | Outpatient (AMB) | payer BC, SELFPAY ==
--- NOTE | 2024-05-19 14:58 | MHC.PC.OV ---
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: No Accompanied by: Self / Same As Patient Allergies bee pollen [BEE STINGS] Allergy (Unknown, Verified 05/19/24 15:03) Anaphylaxis seafood Allergy (Verified 05/19/24 15:03) ABD pain/indegestion Seasonal Allergies Allergy (Verified 05/19/24 15:03) hayfever Tobacco use date assessed: 05/19/24 Dental Screening Dental Screen Date: 05/19/24 Did you have a dental visit in the last 12 months?: Yes Did you have a dental problem in the last 6 months where you did not have access to dental care?: No PFSH Medical History (Updated 05/19/24 @ 15:36 by Leland Harper MD) Essential hypertension Prophylactic gland removal GERD (gastroesophageal reflux disease) Psoriasis HTN (hypertension) ADHD Internal derangement of left knee Surgical History History of fundoplication History of appendectomy S/P ACL reconstruction Family History (Updated 05/19/24 @ 15:10 by HÉCTOR Juarez) Mother Cancer Diabetes Father Pre-diabetes Social History (Updated 05/19/24 @ 15:09 by HÉCTOR Juarez) Housing: House Alcohol intake: current Alcohol intake frequency: a few times a week Patient Tobacco Use Status: Former Tobacco user Advance Directives Date on File: 12/09/19 service: No Current occupational status: employed Current occupation: [employer] Cognitive needs: No Hearing needs: No Vision needs: Yes (reading glasses) Questionnaire PHQ-9 Over the last 2 weeks, how often have you been bothered by any of the following problems? 1. Little interest or pleasure in doing things: not at all 2. Feeling down, depressed, or hopeless: not at all 3. Trouble falling or staying asleep, or sleeping too much: not at all 4. Feeling tired or having little energy: not at all 5. Poor appetite or overeating: not at all 6. Feeling bad about yourself - or that you are a failure or have let yourself or your family down: not at all 7. Trouble concentrating on things, such as reading the newspaper or watching television: not at all 8. Moving or speaking so slowly that other people could have noticed. Or the opposite - being so fidgety or restless that you have been moving around a lot more than usual: not at all 9. Thoughts that you would be better off or of hurting yourself in some way: not at all Total score: 0 Source: Developed by Drs. Robert Torrez, Veronica Taylor, Nahid Bernard and colleagues, with an educational mark from [employer]. Thrive Questionnaire Date Thrive assessed: 05/19/24 I am a: Patient What is your living situation today?: I have a steady place to live Within the past 12 months, did the food you bought not last and you didn't have the money to get more?: Never true Within the past 12 months, did you worry whether your food would run out before you got money to buy more?: Never true Do you have trouble paying for medicines?: No Do you have trouble getting transportation to medical appointments?: No Do you have trouble paying your heating and electricity bill?: No Do you have trouble taking care of your child, family member or friend?: No Do you have trouble with day-to-day activities such as bathing, preparing meals, shopping, managing finances, etc.?: No Are you currently unemployed and looking for a job?: No Are you interested in more education?: No THRIVE Score: 0 AUDIT C Alcohol Use Questionnaire (AUDIT-C) 1. How often do you have a drink containing alcohol?: 2-3 times a week 2. How many drinks containing alcohol do you have on a typical day when you are drinking?: 1 or 2 3. How often do you have six or more drinks on one occasion?: Never Total Score: 3 NITO-7 AMB Questionnaire NITO-7 Date NITO - 7 assessed: 05/19/24 Feeling nervous, anxious, or on edge: 0 = Not at all Not being able to stop or control worryin = Not at all Worrying too much about different things: 0 = Not at all Trouble relaxin = Not at all Being so restless that it is hard to sit still: 0 = Not at all Becoming easily annoyed or irritable: 0 = Not at all Feeling afraid as if something awful might happen: 0 = Not at all Total NITO-7 score (0-4 normal; 5-9 mild; 10-14 moderate; 15-21 severe): 0 Source: Developed by Drs. Robert Torrez, Veronica Taylor, Nahid Bernard and colleagues, with an educational mark from [employer]. Physical exam (Primary Care) Vital Signs: Last Vital Signs Temp 98.0 F 05/19/24 14:59 Pulse 100 05/19/24 14:59 Resp 16 05/19/24 14:59 BP 148/96 H 05/19/24 14:59 Pulse Ox 98 05/19/24 14:59 Oxygen Delivery Method Room Air 05/19/24 14:59 BMI result Body Mass Index 30.4 Tobacco/Smoking Status: Tobacco use Status Tobacco use date assessed 05/19/24 05/19/24 15:10 Patient Tobacco Use Status Former Tobacco user 05/19/24 15:10 PHQ-9: PHQ-9 Score PHQ-9: Total score 0 05/19/24 15:10 Thrive Assessment: Date of Thrive Assessment Date Thrive assessed 05/19/24 05/19/24 15:10 Coding Level of Care Code New Pt Level 4 (56451) Complex EM visit Add On G2211 Diagnoses Essential hypertension I10 Psoriasis L40.9 Assessment & Plan Assessment & Plan (1) Essential hypertension: Code(s): I10 - Essential (primary) hypertension Category: Medical Plan: Losartan increased to 100 mg a day and HCTZ 25 mg a day added. Works in [employer]), may need a letter for his work. (2) Psoriasis: Code(s): L40.9 - Psoriasis, unspecified Category: Medical Plan: Patient sees a astrophysics teacher who has him on biologicals. Condition is well controlled. Plan History of Present Illness The patient is a 48-year-old male presenting for hypertension management. He has previously been managed on losartan 50 mg after discontinuation of lisinopril due to a cough. Blood pressure readings during mandatory state physicals usually approximate 140/90 mmHg, warranting a reevaluation of his medication regimen given newer lower targets for optimal control. He requires state-mandated blood pressure limits to remain below 140/90 mmHg, necessitating frequent sign-offs by his physician. The patient is on Tremfya for psoriasis, managing side effects appropriately with regular blood work every six months. 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 The patient has no reported recent exacerbations of his psoriatic condition or complications from his current hypertension treatment, though he expresses concern about potential dehydration with the addition of hydrochlorothiazide given his occupational requirements. 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 - Level of activity: Requires periodic drills in full protective rubber suits, impacting hydration status. Review of Systems - Cardiovascular: Reports difficult blood pressure management per state physical requirements. Physical Exam General: Cooperative and healthy appearing Nutritional Appearance: Well nourished Orientation/consciousness: Patient oriented x3 Limitations: No limitations Head: Normal to inspection General: Appearance normal, both eyes and all related structures Neck: Normal visual inspection Chest: Normal palpation of entire chest wall Respiratory: Normal respiratory effort Neurology: Patient oriented x3 Results Plan The management of essential hypertension involves increasing losartan to 100 mg and adding hydrochlorothiazide, with a focus on ensuring the patient?s occupational hydration needs are maintained. Blood work monitoring and coordination of various health needs are integral to maintain optimal management of his psoriasis with Tremfya, aligning dermatology and aviation medical requirements while addressing blood pressure goals. This multifactorial approach supports adherence to both medical and work-related protocols. Patient was informed and verbally consented to the use of an ambient scribe for clinic note documentation during this visit. Discussion Notes During the consultation, I discussed with the patient the adjustment in his antihypertensive therapy, including doubling the dose of losartan to 100 mg and adding hydrochlorothiazide to achieve better control of his blood pressure according to updated guidelines. We reviewed potential risks of dehydration with occupational demands, reassuring the patient that a morning dosing regimen should mitigate these concerns. The efficacy and safety of the adjusted treatment plan, alongside routine laboratory monitoring every six months and alignment of medical appointments, were emphasized to maintain treatment compliance and efficacy. The patient acknowledged understanding the plan and consented to the new treatment regimen without reservations. Patient Instructions - Take losartan 100 mg daily, as prescribed. - Initiate hydrochlorothiazide in the morning to manage blood pressure. - Ensure pre-hydration before wearing protective gear for drills. - Continue regular blood work every six months. - Align your dermatology and aviation physicals as planned. - Return for follow-up consultations to monitor the effectiveness of the adjusted treatment plan. Medications: New losartan 100 mg PO DAILY 90 tabs 1RF hydrochlorothiazide 25 mg PO DAILY 90 tabs 0RF
[2024-05-19 14:59] VITALS: BP 148/96; PULSE 100; RESP 16; TEMP 36.7; O2SAT 98; BMI 30.4
--- OUTSIDE RECORDS SUMMARY | 2024-05-19 17:22 | XMS_ITS ---
Author Organization [facility] Address [address] [place] [address] [place] [address] Care Team Providers Care Tour Sales Representative Name Role Phone Branden Syed MD Primary Care Provider Robert Hough Unavailable [phone] Allergies Allergen (clinical drug ingredient) Drug/Non Drug Allergy documented on EMR Reaction Allergy Type Onset Date Status BEES SHELLFISH (uncoded) Unknown Allergy Active REASON FOR VISIT Patient presents today for an upper endo recall Medications Medication SIG (Take, Route, Frequency, Duration) Notes Start Date End Date Status Atorvastatin Calcium 10 MG TAKE 1 TABLET BY MOUTH EVERY NIGHT Oral for 60 Active Tremfya 100 MG/ML Subcutaneous for 56 Active Losartan Potassium 50 MG TAKE 1 TABLET B Y MOUTH EVERY DAY. Oral for 90 Active Georgie Allergy 180 MG 1 tablet Orally O nce a day for 30 day(s) Active Social History Tobacco Use: Social History Observation Description Date Details (start date - stop date) Former Smoker NA - NA Tobacco Use/Smoking Question Answer Notes Patient is a former smoker When did you stop smoking? 2006 How long has it been since you last smoked? > 10 years Alcohol Screen Question Answer Notes Did you have a drink contain ing alcohol in the past year? Yes How often did you have a dri nk containing alcohol in the past year? 4 or more times a week (4 points) How many drinks did you have on a typical day when you were drinking in the past year? 1 or 2 drinks (0 point) How often did you have 6 or more drinks on one occasion in the past year? Never (0 point) Points 4 Interpretation Positive Section Notes: Nonsmoker; occasional alcoho l Problems Problem Type SNOMED Code ICD Code Onset Dates Problem Status W/U Status Risk Notes Problem History of polyp of colon (situation) (546587948) Personal history of colonic polyps (Z86.010) Active confirmed Vital Signs Blood pressure systolic 00 mm Hg 04/20/19 25 Blood pressure diastolic 00 mm Hg 025 Height 71.75 in 04/20/2024 Weight 224 lbs 04/20/2024 BMI 30.59 kg/m2 04/20/2024 Encounters Encounter Location Date Provider Diagnosis [facility] [address] [place] [address] 04/20/2024 Robert Snider Gastroesophageal ref lux disease, unspecified whether esophagitis present K21.9 ; 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 He has continued to do very well in regard to his previous hiatal hernia surgery. He is not needed any further medication for his previous acid reflux. I did recommend a followup upper endoscopy in regard to the finding of the small areas of Tinoco's esophagus in 2020. We did review the theoretical increased risk of esophageal cancer in patients with Tinoco's esophagus. Full consent was obtained for the upper endoscopy, including risks of bleeding and perforation. Procedure will be done monitored anesthesia care. We did review the findings on his colonoscopy in regard to the small tubular adenoma. I advised him of the need for a followup screening colonoscopy in 2027. Ivelisse was comfortable with this plan. Thank you again for allowing me to participate in Ivelisse's care. I shall continue to keep you advised of his progress. 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 He has continued to do very well in regard to his previous hiatal hernia surgery. He is not needed any further medication for his previous acid reflux. I did recommend a followup upper endoscopy in regard to the finding of the small areas of Tinoco's esophagus in 2020. We did review the theoretical increased risk of esophageal cancer in patients with Tinoco's esophagus. Full consent was obtained for the upper endoscopy, including risks of bleeding and perforation. Procedure will be done monitored anesthesia care. We did review the findings on his colonoscopy in regard to the small tubular adenoma. I advised him of the need for a followup screening colonoscopy in 2027. Ivelisse was comfortable with this plan. Thank you again for allowing me to participate in Ivelisse's care. I shall continue to keep you advised of his progress. 04/20/2024 Colon cancer screening (ICD-10 - Z12.11) Overall, Ivelisse appears quite well. He has continued to do very well in regard to his previous hiatal hernia surgery. He is not needed any further medication for his previous acid reflux. I did recommend a followup upper endoscopy in regard to the finding of the small areas of Tinoco's esophagus in 2020. We did review the theoretical increased risk of esophageal cancer in patients with Tinoco's esophagus. Full consent was obtained for the upper endoscopy, including risks of bleeding and perforation. Procedure will be done monitored anesthesia care. We did review the findings on his colonoscopy in regard to the small tubular adenoma. I advised him of the need for a followup screening colonoscopy in 2027. Ivelisse was comfortable with this plan. Thank you again for allowing me to participate in Ivelisse's care. I shall continue to keep you advised of his progress. 04/20/2024 Personal history of colonic polyps (ICD-10 - Z86.010) Overall, Ivelisse appears quite well. He has continued to do very well in regard to his previous hiatal hernia surgery. He is not needed any further medication for his previous acid reflux. I did recommend a followup upper endoscopy in regard to the finding of the small areas of Tinoco's esophagus in 2020. We did review the theoretical increased risk of esophageal cancer in patients with Tinoco's esophagus. Full consent was obtained for the upper endoscopy, including risks of bleeding and perforation. Procedure will be done monitored anesthesia care. We did review the findings on his colonoscopy in regard to the small tubular adenoma. I advised him of the need for a followup screening colonoscopy in 2027. Ivelisse was comfortable with this plan. Thank you again for allowing me to participate in Ivelisse's care. I shall continue to keep you advised of his progress. Plan Of Treatment Future Test Test Name Order Date UPPER GI ENDOSCOPY 04/20/2024 Next Appt Details Provider Name:Robert Snider , 07/26/2024 12:30:00 PM, [address] [place] [address], [phone], Progress Notes * QUINTIN PATRICKINDOB: 4 (48 yo M)Acc No.[id number]:04/20/2024 Progress Notes Patient:IVELISSE LONG Provider:?Robert Snider MD :1975???Age:48 Y???Sex:Male Mckinley e:04/20/2024 Address:[address] [place], [place] [id number] Pcp:Branden Syed MD Subjective: * Chief Complaints: * ???1. Patient presents today for an upper endo recall. * HPI: ???incontinence:? I saw Ivelisse in followup today in regard to his history of gastroesophageal reflux with associated Tinoco's esophagus, as well as his personal history of a tubular adenoma the colon. I last saw Ivelisse in 2022, at which time he underwent a screening colonoscopy with removal of a small tubular adenoma. He presently feels very well. His reflux has remained asymptomatic ever since his hiatal hernia surgery with Dr. Grimes in 2021. He does not take any medication for acid suppression. He enjoys a good appetite and denies any significant heartburn nor dysphagia. He denies any nausea, vomiting, abdominal pain, jaundice, nor unintentional weight loss. His bowel movements have been regular and without any signs of bleeding. * Medical History:?Denies VA,D M,CVA,Lung disease,renal disease, ADHD-Dr. Sykes-improved with Adderal, HTN, Psoriasis, GERD-EGD in August of 2020-small hiatal hernia and changes of reflux, although biopsies from the EG junction revealed small areas of Tinoco's mucosa without dysplasia--there was no esophagitis; there was a minimal gastritis and gastric biopsies were negative for H. pylori, Colonoscopy 2022 with a small tubular adenoma removed. * Surgical History:?LEFT KNEE ACL REPAIR 09/2019, Appendectomy 1984, Gland removed age 1 in neck , Laparoscopic Fundoplication- Dr. Grimes--early 2021 . * Family History:?Father: mike carey, diagnosed with HTN (hypertension).?Mother: alive, Duodenal adenocarcinoma--had Whipple procedure and has been doing well since then.?Paternal Grand Mother: stomach cancer, diagnosed with Heart disease.? No colorectal cancer. * Social History:?Tobacco Use:?Tobacco Use/Smoking?Patient is a?former smoker,?When did you stop smoking??2006,?How long has it been since you last smoked??> 10 years.?Drugs/Alcohol:?Alcohol Screen?Did you have a drink containing alcohol in the past year??Yes,?How often did you have a drink containing alcohol in the past year??4 or more times a week (4 points),?How many drinks did you have on a typical day when you were drinking in the past year??1 or 2 drinks (0 point),?How often did you have 6 or more drinks on one occasion in the past year??Never (0 point),?Points?4,?Interpretation?Positive.?Miscellaneous:?Marital status: . Occupation: [employer]--[employer]. ???Nonsmoker; occasional alcohol. * Medications:?Taking Georgie Allergy 180 MG Tablet 1 tablet Orally Once a day , Taking Losartan Potassium 50 MG Tablet TAKE 1 TABLET BY MOUTH EVERY DAY. Oral , Taking Tremfya 100 MG/ML Solution Prefilled Syringe Subcutaneous , Taking Atorvastatin Calcium 10 MG Tablet TAKE 1 TABLET BY MOUTH EVERY NIGHT Oral , Discontinued Omeprazole 20 MG Capsule Delayed Release 1 Oral BID , Medication List reviewed and reconciled with the patient * Allergies:?BEES SHELLFISH. Objective: * Vitals:?Wt: 224 lbs, Ht: 71. 75 in, BMI:30.59Index, BP: 00/00 mm Hg. 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 Overall, Ivelisse appears quite well. He has continued to do very well in regard to his previous hiatal hernia surgery. He is not needed any further medication for his previous acid reflux. I did recommend a followup upper endoscopy in regard to the finding of the small areas of Tinoco's esophagus in 2020. We did review the theoretical increased risk of esophageal cancer in patients with Tinoco's esophagus. Full consent was obtained for the upper endoscopy, including risks of bleeding and perforation. Procedure will be done monitored anesthesia care. We did review the findings on his colonoscopy in regard to the small tubular adenoma. I advised him of the need for a followup screening colonoscopy in 2027. Ivelisse was comfortable with this plan. Thank you again for allowing me to participate in Ivelisse's care. I shall continue to keep you advised of his progress. 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 ??Counseling:?Care goal follow-up plan:?Above Normal BMI Follow-up?Giving encouragement to exercise,?BMI management provided?Yes.? * * The named appointment provid er may or may not be the originator of this progress note, and it is not deemed complete until electronically signed by the appointment provider. Sign off status: Pending * Provider:?Robert Snider MD Date:? 025 Generated for Iman hauser/Chris/Yingransmitting on:?05/19/2024 05:22 PM EDT History and Physical Notes * HPI (History of Present Illness) Category Sub-Category Detail Notes Category Not es incontinence I saw Ivelisse in followup today in regard to his history of gastroesophageal reflux with associated Tinoco's esophagus, as well as his personal history of a tubular adenoma the colon. I last saw Ivelisse in 2022, at which time he underwent a screening colonoscopy with removal of a small tubular adenoma. He presently feels very well. His reflux has remained asymptomatic ever since his hiatal hernia surgery with Dr. Grimes in 2021. He does not take any medication for acid suppression. He enjoys a good appetite and denies any significant heartburn nor dysphagia. He denies any nausea, vomiting, abdominal pain, jaundice, nor unintentional weight loss. His bowel movements have been regular and without any signs of bleeding.
--- OUTSIDE RECORDS SUMMARY | 2024-05-19 17:22 | XMS_ITS ---
Author Organization [facility] Address [address] [place] [address] Care Team Providers Care Pipe Tester Name Role Phone Branden Syed MD Primary Care Provider Robert Hough [phone] REASON FOR VISIT Patient presents today for an upper endo recall Encounters Encounter Location Date Provider Diagnosis [facility] [address] [place] [address] 01/02/2024 Robert Snider Plan Of Treatment Next Appt Details Provider Name:Robert Snider , 07/26/2024 12:30:00 PM, [address] [place] [address], [id number], Progress Notes * SIDNEY PATRICKOB: 4 (48 yo M)Acc No.[id number]:01/02/2024 Progress Notes Patient:?IVELISSE PATRICK Provider:?Robert Snider MD :1975???Age:48 Y???Sex:Male Mckinley e:01/02/2024 Address:[address] [place], [place] [id number] Pcp:Branden Syed MD Subjective: * Chief Complaints: * ???1. Patient presents today for an upper endo recall. * Medical History:? Objective: * Vitals:? Assessment: Plan: * Treatment: * * The named appointment provid er may or may not be the originator of this progress note, and it is not deemed complete until electronically signed by the appointment provider. Sign off status: Pending * Provider:?Robert Snider MD Date:? 024 Generated for Iman hauser/Chris/Estebanitting on:?05/19/2024 05:21 PM EDT
--- OUTSIDE RECORDS SUMMARY | 2024-05-19 17:22 | XMS_ITS | Patient Health Record ---
Author Organization [facility] Address [address] [place] [address] Care Team Providers Care Heel Seat Pounder Name Role Phone Branden Wade MD Primary Care Provider Robert Hough Unavailable [phone] Allergies Allergen (clinical drug ingredient) Drug/Non Drug Allergy documented on EMR Reaction Allergy Type Onset Date Status BEES SHELLFISH (uncoded) Unknown Allergy Active Reason For Referral Referring Provider First Name Branden Referring Provider Last Name Yahaira Referring Provider Speciality Internal M edicine Referred Organization [facility] Referred Provider Robert Juan Referred Address [address] [facility] [address],[place], [place],[address], Referred Provider Specialty Gastroentero logy General Notes Katie Hoskins 024 02:49:38 PM EDT > REQUEST AN [facility] BLUE REFERRAL FROM DR WADE'S OFFICE FOR VISIT WITH DR JUAN ON 01-02-2024 ([facility] 12-02-2023) [phone] Referral Priority Routine Medications Medication SIG (Take, Route, Frequency, Duration) [...] nce a day for 30 day(s) Active Immunizations Vaccine Route Administration Date Status Comme nts Influenza Unknown 03/10/2020 Administered Influenza Unknown 04/16/2022 Refused Social History Tobacco Use: Social History Observation [...] Positive Section Notes: Nonsmoker; occasional alcoho l Nonsmoker; 1 beer and Q drin k QD Nonsmoker; 1 beer and Q drin k QD Nonsmoker; occasional alcoho l Problems Problem Type SNOMED Code ICD Code Onset Dates Problem Status W/U Status Risk Notes Problem 785620598 Colon cancer screening (Z12.11) Active confirmed Problem Esophageal reflux (232396151) Esophageal reflux (K21.9) Active confirmed Problem 23579389 Epigastric abdom inal pain (R10.13) Active confirmed Problem History of polyp of colon (situation) (737113758) Personal history of colonic polyps (Z86.010) Active confirmed Problem 226190889 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) Active confirmed Problem 144647783 Gastroesophageal reflux disease without esophagitis (K21.9) Active confirmed Problem 77175787 Hiatal hernia (K44.9) Active confirmed Problem 527119261 Gastroesophageal reflux disease, unspecified whether esophagitis present (K21.9) Active confirmed Vital Signs Blood pressure diastolic 00 mm Hg 04/20/2024 Height 71.75 in 04/20/2024 Blood pressure systolic 00 mm Hg 04/20/2024 Weight 224 lbs 04/20/2024 BMI 30.59 kg/m2 04/20/2024 Encounters Encounter Location Date Provider Diagnosis [facility] [address] [place] [address] 04/20/2024 Robert Juan Gastroesophageal ref lux disease, unspecified whether esophagitis [...] advised of his progress. Plan Of Treatment Pending Test Test Name Order Date Esophageal Motility study 12/06/2020 US ABD 08/03/2020 24 HR pH PROBE 12/06/2020 Future Test Test Name Order Date UPPER GI ENDOSCOPY 08/03/2020 COLONOSCOPY 04/16/2022 UPPER GI ENDOSCOPY 04/20/2024 Next Appt Details Provider Name:Robert Juan , 07/26/2024 12:30:00 PM, [address] [place] [address] , [place], [place], [phone], Insurance Providers Payer Name Payer Address Payer Phone Subscriber Number Group Number Insured Name Patient Relationship to Insured Coverage Start Date Coverage End Date O [employer] [address] [place] [address] [id number] IVELISSE PATRICK Self - patient is the insured Medical (General) History Medical History History ICD Code Denies [place],DM,CVA,Lung disease,renal dise ase ADHD-Dr. Sykes-improved with Adderal HTN Psoriasis GERD-EGD in August of 2020-sma ll hiatal hernia and changes of reflux, although biopsies from the EG junction revealed small areas of Tinoco's mucosa without dysplasia--there was no esophagitis; there was a minimal gastritis and gastric biopsies were negative for H. pylori Colonoscopy 2022 with a small tubular ad enoma removed Surgical History Surgery Date(Month/Year) LEFT KNEE ACL REPAIR 09/2019 Appendectomy 1985 Gland removed age 1 in neck Laparoscopic Fundoplication- Dr. Elsie monte--early 2021
== END 2024-05-19 15:32 | disposition home or self-care (01) ==
LOC: HO.HMCHD 14:44
PROVIDERS: PCP Internal Medicine; Visit Provider Internal Medicine
DX: I10 Essential (primary) hypertension (principal); L40.9 Psoriasis, unspecified

== ENCOUNTER 2024-07-26 10:20 | Day surgery (SDC) | payer BC, SELFPAY ==
--- OUTSIDE RECORDS SUMMARY | 2024-07-19 11:29 | XMS_ITS ---
Author Organization [facility] Address [address] [place] [address] [place] [address] Care Team Providers Care Network Control Operators Supervisor Name Role Phone Branden Syed MD Primary Care Provider Robert Hough Unavailable [phone] Allergies Allergen (clinical drug ingredient) Drug/Non Drug [...] Problem History of polyp of colon (situation) (860433447) Personal history of colonic polyps (Z86.010) Active confirmed Vital Signs Blood pressure systolic 00 mm Hg 04/20/19 25 Blood pressure diastolic 00 mm Hg 025 Height 71.75 in 04/20/2024 Weight 224 lbs 04/20/2024 BMI 30.59 kg/m2 04/20/2024 Encounters Encounter Location Date Provider Diagnosis [facility] [address] [place] [address] 04/20/2024 Robert Snider Gastroesophageal ref lux disease, [...] UPPER GI ENDOSCOPY 04/20/2024 Next Appt Details Follow Up: prn, Reason: Provider Name:Robert Snider , 07/26/2024 11:30:00 AM, [address] [facility] , [place], [place], [phone], Progress Notes * SIDNEY PATRICKOB: 4 (48 yo M)Acc No.[id number]:04/20/2024 Progress Notes Patient:IVELISSE LONG Provider:?Robert Snider MD :1975???Age:48 Y???Sex:Male Mckinley e:04/20/2024 Address:[address] [place], [place] [id number] Pcp:Branden Syed MD Subjective: * Chief Complaints: * ???Patient presents today fo r an upper endo recall * HPI: ???incontinence:? I saw Ivelisse in [...] and without any signs of bleeding. * ROS:?General/Constitutional:?Change in appetite?denies.?Chills?denies.?Fatigue?denies.?Ophthalmologic:?Comments?all negative.?ENT:?Comments?all negative.?Respiratory:?hemoptysis?denies.?Cough?denies.?Cardiovascular:?Chest pain?denies.?Orthopnea?denies.?Gastrointestinal:?Comments?See HPI for details.?Genitourinary:?Hematuria?denies.?Dysuria?denies.?Musculoskeletal:?Painful joints?denies.?Weakness?denies.?Skin:?Itching?denies.?Rash?denies.?Neurologic:?Headache?denies.?Seizures?denies.?Psychiatric:?Comments?all negative.? * Medical History:? * Surgical History:?LEFT KNEE ACL REPAIR 09/2019Appendectomy 1985Gland removed age 1 in neck Laparoscopic Fundoplication- Dr. Grimes--early 2021 * Hospitalization/Major Diagno stic Procedure:?No Hospitalization History. * Family History:?Father: mike carey, diagnosed with [...] past year??Never (0 point),?Points?4,?Interpretation?Positive.?Miscellaneous:?Marital status: . Occupation: [employer]--[employer]. ???Nonsmoker; occasional alcohol. * Medications:?TakingAllegra A llergy 180 MG Tablet 1 tablet Orally Once a day Losartan Potassium 50 MG Tablet TAKE 1 TABLET BY MOUTH EVERY DAY. Oral Tremfya 100 MG/ML Solution Prefilled Syringe Subcutaneous Atorvastatin Calcium 10 MG Tablet TAKE 1 TABLET BY MOUTH EVERY NIGHT Oral Taking Georgie Allergy 180 MG Tablet 1 tablet Orally Once a day Taking Losartan Potassium 50 MG Tablet TAKE 1 TABLET BY MOUTH EVERY DAY. Oral Taking Tremfya 100 MG/ML Solution Prefilled Syringe Subcutaneous Taking Atorvastatin Calcium 10 MG Tablet TAKE 1 TABLET BY MOUTH EVERY NIGHT Oral DiscontinuedOmeprazole 20 MG Capsule Delayed Release 1 Oral BID Medication List reviewed and reconciled with the patientDiscontinued Omeprazole 20 MG Capsule Delayed Release 1 Oral BID Medication List reviewed and reconciled with the patient * Allergies:?BEES SHELLFISHyes [Allergies Verified] Objective: * Vitals:?Wt: 224 lbs, Ht: 71. 75 in, BMI:30.59Index, BP: 00/00 mm Hg. * Examination: ???General Examination: ?GENERAL APPEARANCE:?pleasant, well nourished, well developed, in no acute distress.?EYES:?sclera non-icteric.?ORAL CAVITY:?mucosa moist.?NECK/THYROID:?no cervical lymphadenopathy, neck supple.?SKIN:?nonjaundiced, no spider angiomata.?HEART:?S1, S2 normal.?LUNGS:?clear to auscultation bilaterally.?ABDOMEN:?normal bowel sounds, no guarding or rigidity, no guarding or rigidity, no masses palpable, soft, nontender, nondistended.?EXTREMITIES:?no edema.?NEUROLOGIC:?alert and oriented.? Assessment: * Assessment: 1.?Tinoco's esophagus witho ut dysplasia - K22.70 (Primary)???2.?Gastroesophageal reflux disease, unspecified whether esophagitis present - K21.9???3.?Colon cancer screening - Z12.11???4.?Personal history of colonic [...] advised of his progress. Plan: * Treatment: 2.?Gastroesophageal reflux disease, unspecified whether esophagitis present?Procedure: UPPER GI ENDOSCOPY (Ordered for 04/20/2024)* with MAC * Procedure Codes:?3017F COLOR ECTAL CA SCREEN DOC CPT9707Z TOBACCO NON-[id number] BP SCR NOT PRFRM REC REASON NOS * Preventive Medicine:? ??Counseling:?Care goal follow-up plan:?Above Normal BMI Follow-up?Giving encouragement to exercise,?BMI management provided?Yes.? * Follow Up:?prn * * Sign off status: Completed true * Provider:?Robert Snider MD Date:? 025 Generated for Iman hauser/Chris/[place] on:?07/19/2024 11:29 AM EDT History and Physical Notes * HPI [...] regular and without any signs of bleeding. Examination Category Sub-Category Detail Notes Category Not es General Examination GENERAL APPEARANCE: pleasant , well nourished, well developed, in no acute distress HEAD: EYES: sclera non-icteric EARS: NOSE: THROAT: NECK/THYROID: no cervical lymphade nopathy, neck supple HEART: S1, S2 normal CHEST: LUNGS: clear to auscultatio n bilaterally ABDOMEN: normal bowel sounds, no guarding or rigidity, no guarding or rigidity, no masses palpable, soft, nontender, nondistended NEUROLOGIC: alert and oriented SKIN: nonjaundiced, no spi charles angiomata EXTREMITIES: no edema PERIPHERAL PULSES: BACK: BREASTS: MUSCULOSKELETAL: MALE GENITOURINARY: LYMPH NODES: RECTAL EXAM: FEMALE GENITOURINARY: ORAL CAVITY: mucosa moist
--- OUTSIDE RECORDS SUMMARY | 2024-07-19 11:29 | XMS_ITS | Patient Health Record ---
Author Organization [facility] Address [address] [place] [address] Care Team Providers Care Ghost Writer Name Role Phone Branden Wade MD Primary Care Provider Robert Hough Unavailable [phone] Allergies Allergen (clinical drug ingredient) Drug/Non Drug Allergy documented on EMR Reaction Allergy Type Onset Date Status BEES SHELLFISH (uncoded) Unknown Allergy Active Reason For Referral Referring Provider First Name Branden Referring Provider Last Name Yahaira Referring Provider Speciality Internal M edicine Referred Organization [facility] Referred Provider Robert Juan Referred Address [address] [facility],[address],[place], [place],[address], Referred Provider Specialty Gastroentero logy General Notes Katie Hoskins 024 02:49:38 PM EDT > REQUEST AN [facility] REFERR[place] FROM DR WADE'S OFFICE FOR VISIT WITH DR JUAN ON 01-02-2024 ([facility] 12-02-2023) [phone] Referral Priority Routine Medications Medication SIG (Take, [...] Points 4 Interpretation Positive Section Notes: Nonsmoker; 1 beer and Q drin k QD Nonsmoker; 1 beer and Q drin k QD Nonsmoker; occasional alcoho l Nonsmoker; occasional alcoho l Problems Problem Type SNOMED Code ICD Code Onset Dates Problem Status W/U Status Risk Notes Problem 483913161 Colon cancer screening (Z12.11) Active confirmed Problem Esophageal reflux (431441044) Esophageal reflux (K21.9) Active confirmed Problem 96066593 Epigastric abdom inal pain (R10.13) Active confirmed Problem History of polyp of colon (situation) (078823633) Personal history of colonic polyps (Z86.010) Active confirmed Problem 077647372 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) Active confirmed Problem 283882755 Gastroesophageal reflux disease without esophagitis (K21.9) Active confirmed Problem 34317244 Hiatal hernia (K44.9) Active confirmed Problem 506219864 Gastroesophageal reflux disease, unspecified whether esophagitis present (K21.9) Active confirmed Vital Signs Blood pressure diastolic 00 mm Hg 04/20/2024 Height 71.75 in 04/20/2024 Blood pressure systolic 00 mm Hg 04/20/2024 Weight 224 lbs 04/20/2024 BMI 30.59 kg/m2 04/20/2024 Encounters Encounter Location Date Provider Diagnosis [facility] [address] [place] [address] 04/20/2024 Robert Juan Gastroesophageal ref lux disease, unspecified whether esophagitis present K21.9 ; Tinoco's esophagus without dysplasia K22.70 ; Colon cancer screening Z12.11 and Personal history of colonic polyps Z86.010 Assessments Encounter Date Diagnosis (ICD Code) Assessment Notes Treatment Notes Treatment Clinical Notes Section Notes 04/20/2024 Tinoco's esophagus without dysplasia (ICD-10 - [...] keep you advised of his progress. 04/20/2024 Gastroesophageal reflux disease, unspecified whether esophagitis [...] Appt Details Provider Name:Robert Juan , 07/26/2024 11:30:00 AM, [address] [place] [address] , [place], [place], [phone], Insurance Providers Payer Name Payer Address Payer Phone Subscriber Number Group Number Insured Name Patient Relationship to Insured Coverage Start Date Coverage End Date O [employer]UE [employer] [address] [place] [address] [id number] IVELISSE PATRICK Self - patient is the insured Medical (General) History Medical History History ICD Code Denies CO,DM,CVA,Lung disease,renal dise ase ADHD-Dr. Sykes-improved with Adderal [...]
--- OUTSIDE RECORDS SUMMARY | 2024-07-19 11:29 | XMS_ITS ---
Author Organization [facility] Address [address] [facility] [address] [place] [address] Care Team Providers Care Sales Coordinator Name Role Phone Branden Syed MD Primary Care Provider Robret Hough [phone] REASON FOR VISIT Patient presents today for an upper endo recall Encounters Encounter Location Date Provider Diagnosis [facility] [address] [facility] [address] [place] [address] 01/02/2024 Robert Snider Plan Of Treatment Next Appt Details Provider Name:Robert Snider , 07/26/2024 11:30:00 AM, [address] [place] [address], [phone], Progress Notes * SIDENY PATRICKOB: 4 (48 yo M)Acc No.[id number]:01/02/2024 Progress Notes Patient:?IVELISSE PATRICK Provider:?Robert Snider MD :1975???Age:48 Y???Sex:Male Mckinley e:01/02/2024 Address:[address] [place], [place] [phone] Pcp:Branden Syed MD Subjective: * Chief Complaints: [...] MD Date:? 024 Generated for Iman hauser/Chris/Estebanitting on:?07/19/2024 11:29 AM EDT
[2024-07-22 14:11] VITALS: BMI 30.4
--- NOTE | 2024-07-23 08:59 | P.CONAN_ITS ---
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 (Acute) Psoriasis (Acute) Essential hypertension (Acute) Internal derangement of left knee (Acute) S/P ACL reconstruction (Acute) Past Medical History Medical History Essential hypertension Prophylactic gland removal GERD (gastroesophageal reflux disease) Psoriasis HTN (hypertension) ADHD Internal derangement of left knee Family History Family History (Updated 05/19/24 @ 15:10 by HÉCTOR Juarez) Mother Cancer Diabetes Father Pre-diabetes Family history of problems with anesthesia: No Surgical History Surgical History Hx of excision of mass History of esophagogastroduodenoscopy (EGD) H/O colonoscopy History of fundoplication History of appendectomy S/P ACL reconstruction History of Problems with Anesthesia: No (PONV) Social History Social History (Updated 07/22/24 @ 14:11 by Jocelin Lozano RN) Household Members Other:: son Housing: House Are you a primary workforce investment act career manager to a significant other at home: No Do you presently have visiting nurse or other home services: No Alcohol intake: current Alcohol intake frequency: a few times a week Patient Tobacco Use Status: Former Tobacco user Have you been hit, kicked, punched, or otherwise hurt by someone within the past year? If so, by whom?: No Are you DNR?: No Advance Directives: No Advance Directives Information Provided: Yes Advance Directives Date on File: 12/09/19 Poor oral hygiene: No service: No Current occupational status: employed Current occupation: [employer] - Right Handed Cognitive needs: No Hearing needs: No Vision needs: Yes (reading glasses) Meds Allergies Allergy/AdvReac Type Severity Reaction Status Date / Time bee pollen [BEE STINGS] Allergy Unknown Anaphylaxis Verified 07/26/24 10:38 seafood Allergy ABD Verified 07/26/24 10:38 pain/indegestion Seasonal Allergies Allergy hayfever Verified 07/26/24 10:38 Home Medications ?Medication ?Instructions ?Recorded ?Confirmed ?Last Taken ?Type atorvastatin 10 mg tablet 05/31/22 Unknown History guselkumab 100 mg/mL subcutaneous mg subcut 05/31/22 Unknown History syringe (Tremfya) Exam Height,Weight and Vital Signs: Height 5 ft 11 in Weight 98.883 kg Assessment and Plan Assessment Anesthesia Assessment: Chart Reviewed Final Anesthetic Review Family History of Problems with Anesthesia: No History of Problems with Anesthesia: No (PONV) Documented by User: Shruti Cameron MD 07/26/24 12:20 [facility] Past Medical History Medical History Essential hypertension Prophylactic gland removal GERD (gastroesophageal reflux disease) Psoriasis HTN (hypertension) ADHD Internal derangement of left knee Family History Family History (Updated 05/19/24 @ 15:10 by Ceci Marcial Merry) Mother Cancer Diabetes Father Pre-diabetes Surgical History Surgical History Hx of excision of mass History of esophagogastroduodenoscopy (EGD) H/O colonoscopy History of fundoplication History of appendectomy S/P ACL reconstruction Social History Social History (Updated 07/22/24 @ 14:11 by Jocelin Lozano RN) Household Members Other:: son Housing: House Are you a primary workforce investment act career manager to a significant other at home: No Do you presently have visiting nurse or other home services: No Alcohol intake: current Alcohol intake frequency: a few times a week Patient Tobacco Use Status: Former Tobacco user Have you been hit, kicked, punched, or otherwise hurt by someone within the past year? If so, by whom?: No Are you DNR?: No Advance Directives: No Advance Directives Information Provided: Yes Advance Directives Date on File: 12/09/19 Poor oral hygiene: No service: No Current occupational status: employed Current occupation: [employer] - Right Handed Cognitive needs: No Hearing needs: No Vision needs: Yes (reading glasses) Meds Allergies Allergy/AdvReac Type Severity Reaction Status Date / Time bee pollen [BEE STINGS] Allergy Unknown Anaphylaxis Verified 07/26/24 10:38 seafood Allergy ABD Verified 07/26/24 10:38 pain/indegestion Seasonal Allergies Allergy hayfever Verified 07/26/24 10:38 Home Medications ?Medication ?Instructions ?Recorded ?Confirmed ?Last Taken ?Type atorvastatin 10 mg tablet 05/31/22 Unknown History guselkumab 100 mg/mL subcutaneous mg subcut 05/31/22 Unknown History syringe (Bautista) Exam Airway Mallampati Class: III TM Dist: >3cm Neck ROM: Full Loose/Missing/Broken Teeth: No Heart: RRR Lungs: CTA Assessment and Plan Assessment Anesthesia Assessment: Anesthesia Plan Discussed Final Anesthetic Review NPO: Yes ASA Class: II Final Preanesthetic Review: Meds/Allgs Chart Reviewed, Consent Obtained/Reviewed and Anes Risks/Benef Reviewed Patient Risk: Low Procedure Risk: Intermediate Anesthetic Plan Anesthetic Plan: MAC: Disposition: Standard PACU
[2024-07-26 10:35] VITALS: BMI 31.0
[2024-07-26] MEDS: Lactated Ringers 1,000 ML 100 ML IVCONT (10:42)
[2024-07-26 11:10] VITALS: BP 133/98; PULSE 82; RESP 18; TEMP 36.7; O2SAT 95
[2024-07-26 12:50] VITALS: BP 118/60; PULSE 78; RESP 18; TEMP 36.6; O2SAT 98
--- NOTE | 2024-07-26 12:56 | PM.OP ---
Brief Operative Note Date of Service: 07/26/24 Pre-op diagnosis: GERD, Tinoco's Post-op diagnosis: other (Same, Small hiatal hernia) Procedure: EGD with biopsies Surgeon: Robert Snider MD Anesthesia: MAC Was an Outbound Sales Executive used for this Procedure?: No Estimated blood loss (mL): 2.0 Pathology: other (A.. EG Junction at 38cm) Condition: stable Disposition: PACU
--- NOTE | 2024-07-26 13:07 | OP_ITS ---
DATE OF SERVICE: 07/26/2024 SURGEON: Robert Snider MD INDICATIONS: The patient presents for evaluation of gastroesophageal reflux and Tinoco's esophagus. Full consent has been obtained from him for this, including risks of bleeding and perforation. PREOPERATIVE DIAGNOSIS: POSTOPERATIVE DIAGNOSIS: PROCEDURE PERFORMED: Esophagogastroduodenoscopy with biopsies. ESTIMATED BLOOD LOSS: COMPLICATIONS: ANESTHESIA: Medication used; monitored anesthesia care. ASSISTANTS: SPECIMENS: PREOPERATIVE DIAGNOSES: Gastroesophageal reflux and history of Tinoco's esophagus. POSTOPERATIVE DIAGNOSES: Gastroesophageal reflux and history of Tinoco's esophagus, small hiatal hernia, evidence of previous fundoplication. DESCRIPTION OF PROCEDURE: The patient was placed in the left lateral decubitus position. The Olympus videogastroscope was passed in the posterior oropharynx and upper esophagus under direct vision. The scope was passed slowly to the distal esophagus. The gastroesophageal junction appeared at 38 cm. There was some very minimal irregularity, but no evidence of any esophagitis nor any lesions. There was evidence of a small hiatal hernia. The scope was advanced to pylorus. The duodenum was cannulated to the descending portion. The duodenum including the bulb was carefully inspected and appeared normal without mass or ulceration. The scope was withdrawn back to the stomach. The gastric antrum and body appeared normal with good peristalsis. The scope was retroflexed visualizing the proximal stomach carefully, which appeared normal and consistent with his previous fundoplication. There was no sign of any mass or ulceration. The scope was straightened and withdrawn back to the esophagus. Multiple biopsies were obtained at the EG junction at 38 cm. Proximal to this, the esophageal mucosa appeared normal. Scope was withdrawn from the patient. He tolerated the procedure well and was returned to the recovery area in stable condition. IMPRESSION: 1. Small hiatal hernia. 2. Status post fundoplication. 3. Tinoco's esophagus. PLAN: The results of biopsies will be checked. I would recommend a repeat upper endoscopy in 3 years when he has his next screening colonoscopy. At the present time, he is not using any acid suppression as he has been doing very well ever since his fundoplication for the previous hiatal hernia. He was advised not to use any aspirin or NSAIDs for 1 week. He will see me in the interim on a p.r.n. basis. MD MARCELA Cole/AMANDA / [phone] ALEXEY
[2024-07-26 13:20] VITALS: BP 129/84; PULSE 87; RESP 18; O2SAT 98
[2024-07-26 13:35] VITALS: BP 140/94; PULSE 75; RESP 18; TEMP 36.5; O2SAT 98
== END 2024-07-26 14:02 | disposition home or self-care (01) ==
PROVIDERS: PCP Internal Medicine; Visit Provider Internal Medicine
PROC: 0DJ08ZZ Inspection of Upper Intestinal Tract, Via Natural or Artificial Opening Endoscopic (ICD-10-PCS; CPT 43235; principal; 2024-07-26 11:30)
DX: K22.70 Barrett's esophagus without dysplasia (principal); K44.9 Diaphragmatic hernia without obstruction or gangrene; K21.9 Gastro-esophageal reflux disease without esophagitis; I10 Essential (primary) hypertension; F90.9 Attention-deficit hyperactivity disorder, unspecified type; Z79.899 Other long term (current) drug therapy; Z79.620 Long term (current) use of immunosuppressive biologic; Z98.890 Other specified postprocedural states; Z87.891 Personal history of nicotine dependence
CPT/HCPCS: 43239; 88305; 88313; 88342; J2003; J2250; J2704

== ENCOUNTER 2024-08-16 15:02 | Outpatient (AMB) | payer BC, SELFPAY ==
[2024-08-16 15:14] VITALS: BP 132/80; PULSE 89; TEMP 36.4; O2SAT 99; BMI 30.5
--- NOTE | 2024-08-16 15:14 | MHC.PC.OV ---
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 Technician Required: No Accompanied by: Self / Same As Patient Allergies bee pollen [BEE STINGS] Allergy (Unknown, Verified 08/16/24 15:18) Anaphylaxis seafood Allergy (Verified 08/16/24 15:18) ABD pain/indegestion Seasonal Allergies Allergy (Verified 08/16/24 15:18) hayfever Tobacco use date assessed: 08/16/24 Dental Screening Dental Screen Date: 08/16/24 Did you have a dental visit in the last 12 months?: Yes Did you have a dental problem in the last 6 months where you did not have access to dental care?: No PFSH Medical History Essential hypertension Prophylactic gland removal GERD (gastroesophageal reflux disease) Psoriasis HTN (hypertension) ADHD Internal derangement of left knee Surgical History Hx of excision of mass History of esophagogastroduodenoscopy (EGD) H/O colonoscopy (~06/03/22) History of fundoplication History of appendectomy S/P ACL reconstruction Family History (Updated 08/16/24 @ 15:19 by Angi Escamilla MA) Mother Cancer Diabetes Father Pre-diabetes Social History Household Members Other:: son Housing: House Are you a primary healthcare economics manager to a significant other at home: No Do you presently have visiting nurse or other home services: No Alcohol intake: current Alcohol intake frequency: a few times a week Patient Tobacco Use Status: Former Tobacco user e-Cigarette/Vaping Use: Former Use Advance Directives Date on File: 12/09/19 service: No Current occupational status: employed Current occupation: [employer] - Right Handed Cognitive needs: No Hearing needs: No Vision needs: Yes (reading glasses) Questionnaire PHQ-9 Over the last 2 weeks, how often have you been bothered by any of the following problems? 1. Little interest or pleasure in doing things: not at all 2. Feeling down, depressed, or hopeless: not at all 3. Trouble falling or staying asleep, or sleeping too much: not at all 4. Feeling tired or having little energy: not at all 5. Poor appetite or overeating: not at all 6. Feeling bad about yourself - or that you are a failure or have let yourself or your family down: not at all 7. Trouble concentrating on things, such as reading the newspaper or watching television: not at all 8. Moving or speaking so slowly that other people could have noticed. Or the opposite - being so fidgety or restless that you have been moving around a lot more than usual: not at all 9. Thoughts that you would be better off or of hurting yourself in some way: not at all Total score: 0 Source: Developed by Drs. Robert Torrez, Veronica Taylor, Nahid Bernard and colleagues, with an educational mark from [employer]. Thrive Questionnaire Date Thrive assessed: 08/16/24 I am a: Patient Within the past 12 months, did the food you bought not last and you didn't have the money to get more?: Never true Within the past 12 months, did you worry whether your food would run out before you got money to buy more?: Never true Do you have trouble paying for medicines?: No Do you have trouble getting transportation to medical appointments?: No Do you have trouble paying your heating and electricity bill?: No Do you have trouble taking care of your child, family member or friend?: No Do you have trouble with day-to-day activities such as bathing, preparing meals, shopping, managing finances, etc.?: No Are you currently unemployed and looking for a job?: No Are you interested in more education?: No THRIVE Score: 0 AUDIT C Alcohol Use Questionnaire (AUDIT-C) 1. How often do you have a drink containing alcohol?: Monthly or less 2. How many drinks containing alcohol do you have on a typical day when you are drinking?: 1 or 2 3. How often do you have six or more drinks on one occasion?: Less than monthly Total Score: 2 NITO-7 AMB Questionnaire NITO-7 Date NITO - 7 assessed: 08/16/24 Feeling nervous, anxious, or on edge: 0 = Not at all Not being able to stop or control worryin = Not at all Worrying too much about different things: 0 = Not at all Trouble relaxin = Not at all Being so restless that it is hard to sit still: 0 = Not at all Becoming easily annoyed or irritable: 0 = Not at all Feeling afraid as if something awful might happen: 0 = Not at all Total NITO-7 score (0-4 normal; 5-9 mild; 10-14 moderate; 15-21 severe): 0 Source: Developed by Drs. Robert Torrez, Veronica Taylor, Nahid Bernard and colleagues, with an educational mark from [employer]. Physical exam (Primary Care) Vital Signs: Last Vital Signs Temp 97.6 F 08/16/24 15:14 Pulse 89 08/16/24 15:14 BP 132/80 08/16/24 15:14 Pulse Ox 99 08/16/24 15:14 Oxygen Delivery Method Room Air 08/16/24 15:14 BMI result Body Mass Index 30.5 Tobacco/Smoking Status: Tobacco use Status Tobacco use date assessed 08/16/24 08/16/24 15:19 Patient Tobacco Use Status Former Tobacco user 08/16/24 15:19 e-Cigarette/Vaping Use Former Use 08/16/24 15:19 PHQ-9: PHQ-9 Score PHQ-9: Total score 0 08/16/24 15:19 Thrive Assessment: Date of Thrive Assessment Date Thrive assessed 08/16/24 08/16/24 15:19 Coding Level of Care Code Est Pt Level 4 (13171) Complex EM visit Add On G2211 Diagnoses Essential hypertension I10 Assessment & Plan Assessment & Plan (1) Essential hypertension: Code(s): I10 - Essential (primary) hypertension Category: Medical Plan: BP is in range. Continue combination of HCTZ and Losartan. Importance of diet and exercise emphasized. Plan History of Present Illness - The patient is a 48 year old male presenting with follow-up for management of essential hypertension. - The current medication includes Hydrochlorothiazide, added in the last visit due to hypertension. - Blood pressure readings have remained within normal range since medication adjustments. - No adverse effects, such as cramping, have been noted. - The patient reports muscle soreness consistent with his physically demanding outdoor work, but this is not attributed to medication effects. - Blood work for hypertension monitoring is pending and will be completed soon. - Refills were discussed as potentially necessary, with the patient planning to address this at the pharmacy. 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 - Physical activity: Engages in a high level of physical activity due to his occupation, involving significant outdoor physical labor. Review of Systems - Musculoskeletal: Reports muscle soreness, presumed due to physical activity. - General: Denies any cramping. - No other systems were specified in the conversation. Physical Exam General: Cooperative and healthy appearing Nutritional Appearance: Well nourished Orientation/consciousness: Patient oriented x3 Limitations: No limitations Head: Normal to inspection General: Appearance normal, both eyes and all related structures Neck: Normal visual inspection Chest: Normal palpation of entire chest wall Respiratory: Normal respiratory effort Neurology: Patient oriented x3 Results Plan 1. Essential Hypertension - Maintain current use of Hydrochlorothiazide for blood pressure control. - Watch for side effects; patient currently denies notable issues like cramping. - Complete pending lab work; blood chemistries for compliance and efficacy. - Prescription covers 90 days with one refill. - Prescription refills will be managed at the pharmacy. Discussion Notes I discussed with the patient the unchanged status of his hypertension management, especially regarding the current medication regimen, which includes Hydrochlorothiazide. The patient has not reported significant side effects despite engaging in regular physical activity through work as a supervisor liquefaction. I reiterated the importance of completing the pending laboratory work needed to continually assess the efficacy and safety of his treatment plan. The patient was informed about the Rx plan, ensuring that he receives refills as required. Moreover, we conversed about the need for careful monitoring for any new symptoms such as cramping as a side effect to medications. Patient Instructions - Continue taking your blood pressure medication as directed. - Monitor for any side effects like cramping and notify if they occur. - Complete your fasting blood work as soon as possible. - Visit the pharmacy to address any prescription refill needs. - Report any new or worsening symptoms to our office immediately. - Keep track of your blood pressure at home if possible. Orders: Orders Basic Metabolic Panel Today I10 - Essential (primary) hypertension Complete Blood Count no Diff Today I10 - Essential (primary) hypertension Lipid Panel Today I10 - Essential (primary) hypertension Thyroid Stimulating Hormone Today I10 - Essential (primary) hypertension Liver Panel Today I10 - Essential (primary) hypertension UA and rflx microscopic Today I10 - Essential (primary) hypertension Medications: Refilled hydrochlorothiazide 25 mg PO DAILY 90 tabs 1RF hydrochlorothiazide 25 mg PO DAILY 90 tabs 1RF losartan 100 mg PO DAILY 90 tabs 1RF
--- OUTSIDE RECORDS SUMMARY | 2024-08-16 16:50 | XMS_ITS ---
Author Organization [facility] Address [address] [place] [id number] Care Team Providers Care Domestic Helper Name Role Phone Branden Syed MD Primary Care Provider Robert Hough [phone] REASON FOR VISIT Patient presents today for an upper endo recall Encounters Encounter Location Date Provider Diagnosis [facility] [address] [place] [phone] 01/02/2024 Robert Snider Plan Of Treatment No Information Progress Notes * QUINTIN PATRICKINDOB: 4 (48 yo M)Acc No.[id number]:01/02/2024 Progress Notes Patient:?IVELISSE PATRICK Provider:?Robert Snider MD :[id number]???Age:48 Y???Sex:Male Mckinley e:01/02/2024 Address:[address] [place], [place] [id number] Pcp:Branden Syed MD Subjective: * Chief Complaints: [...] Provider:?Robert Snider MD Date:? 024 Generated for Printi ng/Faxing/eTransmitting on:?08/16/2024 04:49 PM EDT
== END 2024-08-16 15:30 | disposition home or self-care (01) ==
LOC: HO.HMCHD 15:03
PROVIDERS: PCP Internal Medicine; Visit Provider Internal Medicine
DX: I10 Essential (primary) hypertension (principal)

== ENCOUNTER → 2024-08-16 15:02 | Outpatient (BNVA) | payer BC, SELFPAY | PROVIDERS: PCP Internal Medicine; Visit Provider Internal Medicine | DX: Z13.89 Encounter for screening for other disorder (principal) ==

== ENCOUNTER 2024-08-17 07:44 | Outpatient (REF) | payer BC, SELFPAY ==
[2024-08-17 08:20] LABS: Hematocrit 44.6 % (42.0-52.0); Hemoglobin 15.3 g/dl (14.0-18.0); Mean Corpuscular HGB Conc 34.3 g/dl (31.0-36.0); Mean Corpuscular Volume 90.3 fL (80.0-98.0); Mean Platelet Volume 9.9 fL (9.4-12.4); Platelet Count 270 X10*3/uL (160-400); Red Blood Count 4.94 X10*6/uL (4.60-5.80); Red Cell Distribution Width 12.6 % (11.0-16.0); White Blood Count 8.4 X10*3/uL (4.8-10.8)
[2024-08-17 08:24] LABS: Appearance Urine Clear; Color Urine Dark Yellow; Glucose Urine UA Negative (Negative); Leukocyte Esterase Urine Small (1+) (Negative); Nitrite Urine Negative (Negative); Specific Gravity - Urine >= 1.030 (1.005-1.025); UMIC TRIGGER UA YES; Urine Blood Negative (Negative); Urine Ketones Trace mg/dL (Negative); Urine Protein Trace mg/dL (Neg-Trace)
[2024-08-17 08:36] LABS: Bacteria Urine None Seen (None Seen); Hyaline Casts Urine 0-2 /LPF (0-2); RBC Urine 0-2 /HPF (0-2); Squamous Epithelial Cell Urine 0-2 /HPF (0-2); WBC Urine 0-5 /HPF (0-5)
[2024-08-17 09:04] LABS: Alanine Aminotransferase 21 U/L (0-40); Albumin Level 4.7 g/dL (3.5-5.0); Alkaline Phosphatase 60 U/L (39-117); Anion Gap 11 (12-20); Aspartate Amino Transferase 37 U/L (5-37); Bilirubin Direct 0.2 mg/dL (0.0-0.5); Bilirubin Total 0.6 mg/dL (0.0-1.0); Blood Urea Nitrogen 16 mg/dL (9-16); Calcium 9.4 mg/dL (8.4-10.2); Carbon Dioxide 32 mmol/L (22-29); Chloride 102 mmol/L (96-108); Cholesterol 172 mg/dL (<200); Estimated Glomerular Filt Rate > 60; Glucose Random 93 mg/dL (60-115); HDL Cholesterol 47 mg/dL (>40); LDL Cholesterol Calculated 102 mg/dL (<100); Potassium 4.2 mmol/L (3.3-5.1); Sodium 141 mmol/L (135-145); Total Protein 7.8 g/dL (6.5-8.0); Triglycerides 117 mg/dL (<150)
[2024-08-17 09:13] LABS: Thyroid Stimulating Hormone 0.56 uIU/mL (0.32-4.0)
== END 2024-08-17 07:45 | disposition home or self-care (01) ==
LOC: HO.LAB 07:44
PROVIDERS: PCP Internal Medicine; Visit Provider Internal Medicine
DX: I10 Essential (primary) hypertension (principal)
CPT/HCPCS: 36415; 80048; 80061; 80076; 81001; 84443; 85027

== ENCOUNTER 2025-02-16 15:00 | Outpatient (AMB) | payer BC, SELFPAY ==
--- OUTSIDE RECORDS SUMMARY | 2024-01-02 09:20 | XMS_ITS ---
Author Organization [facility] Address [address] [place] [id number] Care Team Providers Care Harm Reduction Worker Name Role Phone Yahaira (RETIRED) , Branden Primary Care Provide Robert Cazares [phone] REASON FOR VISIT Patient presents today for an upper endo recall Encounters Encounter Location Date Provider Diagnosis [facility] [address] [place] [phone] 01/02/2024 Robert Snider Plan Of Treatment No Information Progress Notes * QUINTIN PATRICKINDOB: 4 (49 yo M)Acc No.[id number]:01/02/2024 Progress Notes Patient: IVELISSE LAW Provider: Chandu Snider MD :1975 A ge:48 Y S ex:Male Date:01/02/2024 Address:[address] [place], [place] [id number] Pcp:Branden Syed (RETIRED )MD Subjective: * Chief Complaints: * P atient presents today for an upper endo recall * The named appointment provid er may or may not be the originator of this progress note, and it is not deemed complete until electronically signed by the appointment provider. Sign off status: Pending * Provider: Chandu Snider MD Date: Generated for Susanai ng/Faxing/eTransmitting on: 1 04/19/2024 11:32 PM EST
--- OUTSIDE RECORDS SUMMARY | 2024-07-26 06:30 | XMS_ITS ---
Author Organization [facility] Address [address] [place] [address] Care Team Providers Care Manager Monitoring Name Role Phone Yahaira (RETIRED) Branden GARCIA Primary Care Provide Robert Cazares [phone] REASON FOR VISIT barretts esophagus Encounters Encounter Location Date Provider Diagnosis [facility] [address] [place] [phone] 07/26/2024 Robert Snider Hiatal hernia K44. 9 ; Gastro-esophageal reflux disease without esophagitis K21.9 and History of Tinoco's esophagus Z87.19 Assessments Encounter Date Diagnosis (ICD Code) Assessment Notes Treatment Notes Treatment Clinical Notes Section Notes 07/26/2024 Hiatal hernia (ICD-10 - K44.9) 07/26/2024 Gastro-esophagea l reflux disease without esophagitis (ICD-10 - K21.9) 07/26/2024 History of Tinoco's esophagus (ICD-10 - Z87.19) Plan Of Treatment No Information Progress Notes * QUINTIN PATRICKINDOB: 4 (49 yo M)Acc No.[id number]:07/26/2024 EGD/MAC Patient: Aicha FARLEY IVELISSE Provider: Chandu Snider MD :1975 A ge:48 Y S ex:Male Date:07/26/2024 Address:[address] [place], [place] [phone] Pcp:Branden Syed (RETIRED )MD Subjective: * Chief Complaints: * B arretts esophagus Assessment: * Assessment: 1. H iatal hernia - K44.9 (Primary) 2 . G sandi-esophageal reflux disease without esophagitis - K21.9 3 . H istory of Tinoco's esophagus - Z87.19 ? Plan: * Procedure Codes: 4 3239 UPPER GI ENDOSCOPY, BIOPSY Billing Information: * Procedure Codes: 19753 UPPER GI ENDOSCOPY, BIOPSY. * The named appointment provid er may or may not be the originator of this progress note, and it is not deemed complete until electronically signed by the appointment provider. Sign off status: Pending * Provider: Chandu Snider MD Date: 0 07/26/2024 Generated for Iman hauser/Chris/Yingransmitting on: 1 04/19/2024 11:33 PM EST
--- NOTE | 2025-02-16 15:03 | A.OFFPC_ITS ---
Vital Signs 02/16/25 15:04 Height 5 ft 11 in Weight 225 lb BMI 31.4 BP 126/82 Blood Pressure Location Lt brachial Position Sitting Pulse 85 Pulse Source Pulse Oximeter Temp 97.3 F Temp Source Temporal Artery Scan Pulse Oximetry (%) 98 Oxygen Delivery Method Room Air Intake Visit Reasons: 6 Month F/U Stock Control Supervisor Required: No Accompanied by: Self / Same As Patient Allergies bee pollen (BEE STINGS) Allergy (Unknown, Verified 02/16/25 15:06) Anaphylaxis seafood Allergy (Verified 02/16/25 15:06) ABD pain/indegestion Seasonal Allergies Allergy (Verified 02/16/25 15:06) hayfever Medication List - Last Reconciled 02/16/25 by John Bolden MD guselkumab (Tremfya) mg subcut hydrochlorothiazide 25 mg PO DAILY losartan 100 mg PO DAILY Tobacco use date assessed: 02/16/25 Dental Screening Dental Screen Date: 02/16/25 Did you have a dental visit in the last 12 months?: Yes Did you have a dental problem in the last 6 months where you did not have access to dental care?: No HPI HPI Comments History of Present Illness Details History of Present Illness The patient is a 49-year-old male presenting for management of high blood pressure, high cholesterol, and psoriasis. Regarding his hypertension, he is currently taking losartan 100 mg and hydrochlorothiazide. His blood pressure is well-controlled with a reading of 126/82 mmHg during the visit. For hypercholesterolemia, he was previously on atorvastatin but was taken off the medication by his prior physician. His lab results from August showed a total cholesterol of 172 mg/dL and an LDL of 102 mg/dL. He has a history of psoriasis, for which he sees a felt tipping machine tender, and is currently being treated with Tremfya. He has a history of treatment failure with Humira. 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 He has received his COVID-19 and influenza vaccinations for the year. 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 - Exercise: He reports he walks a lot, i ncluding on a treadmill at home and at work, sometimes for an hour or two. [facility] Medical History (Updated 02/16/25 @ 15:26 by John Bolden MD) Hyperlipidemia Essential hypertension Prophylactic gland removal GERD (gastroesophageal reflux disease) Psoriasis HTN (hypertension) ADHD Internal derangement of left knee Surgical History Hx of excision of mass History of esophagogastroduodenoscopy (EGD) H/O colonoscopy (~06/03/22) History of fundoplication History of appendectomy S/P ACL reconstruction Family History Mother Cancer Diabetes Father Pre-diabetes Social History Household Members Other:: son Housing: House Are you a primary pet care associate to a significant other at home: No Do you presently have visiting nurse or other home services: No Alcohol intake: current Alcohol intake frequency: a few times a week Patient Tobacco Use Status: Former Tobacco user e-Cigarette/Vaping Use: Former Use Advance Directives Date on File: 12/09/19 service: No Current occupational status: employed Current occupation: [employer] - Right Handed Cognitive needs: No Hearing needs: No Vision needs: Yes (reading glasses) Questionnaire PHQ-9 Over the last 2 weeks, how often have you been bothered by any of the following problems? 1. Little interest or pleasure in doing things: not at all 2. Feeling down, depressed, or hopeless: not at all 3. Trouble falling or staying asleep, or sleeping too much: not at all 4. Feeling tired or having little energy: not at all 5. Poor appetite or overeating: not at all 6. Feeling bad about yourself - or that you are a failure or have let yourself or your family down: not at all 7. Trouble concentrating on things, such as reading the newspaper or watching television: not at all 8. Moving or speaking so slowly that other people could have noticed. Or the opposite - being so fidgety or restless that you have been moving around a lot more than usual: not at all 9. Thoughts that you would be better off or of hurting yourself in some way: not at all Total score: 0 Depression Screening Interpretation: Negative Depression Screening Done: Yes 57958 - PHQ-9 Billing: Yes Source: Developed by Drs. Robert Torrez, Veronica Taylor, Nahid Bernard and colleagues, with an educational mark from [employer]. Thrive Questionnaire Date Thrive assessed: 02/16/25 I am a: Patient Within the past 12 months, did the food you bought not last and you didn't have the money to get more?: Never true Within the past 12 months, did you worry whether your food would run out before you got money to buy more?: Never true Do you have trouble paying for medicines?: No Do you have trouble getting transportation to medical appointments?: No Do you have trouble paying your heating and electricity bill?: No Do you have trouble taking care of your child, family member or friend?: No Do you have trouble with day-to-day activities such as bathing, preparing meals, shopping, managing finances, etc.?: No Are you currently unemployed and looking for a job?: No Are you interested in more education?: No THRIVE Score: 0 AUDIT C Alcohol Use Questionnaire (AUDIT-C) 1. How often do you have a drink containing alcohol?: Monthly or less 2. How many drinks containing alcohol do you have on a typical day when you are drinking?: 1 or 2 3. How often do you have six or more drinks on one occasion?: Less than monthly Total Score: 2 NITO-7 AMB Questionnaire NITO-7 Date NITO - 7 assessed: 02/16/25 Feeling nervous, anxious, or on edge: 0 = Not at all Not being able to stop or control worryin = Not at all Worrying too much about different things: 0 = Not at all Trouble relaxin = Not at all Being so restless that it is hard to sit still: 0 = Not at all Becoming easily annoyed or irritable: 0 = Not at all Feeling afraid as if something awful might happen: 0 = Not at all Total NITO-7 score (0-4 normal; 5-9 mild; 10-14 moderate; 15-21 severe): 0 Source: Developed by Drs. Robert Torrez, Veronica Taylor, Nahid Bernard and colleagues, with an educational mark from [employer]. NITO-7 Assessment Billing NITO-7 Assessment Tool: NITO-7 Assessment 16749 Review of Systems Narrative Review of Systems - The patient denies any specific complaints. - Constitutional: Denies feeling unwell - Gastrointestinal: Denies any issues with bowel movements - Genitourinary: Denies any issues with urination - Cardiovascular: Denies chest pain - Respiratory: Denies shortness of breath - Neurological: Denies headaches - Eyes: Denies vision loss or vision changes All systems reviewed & are unremarkable except as reviewed in HPI and above Physical exam (Primary Care) Vital Signs: Last Vital Signs Temp 97.3 F 02/16/25 15:04 Pulse 85 02/16/25 15:04 BP 126/82 02/16/25 15:04 Pulse Ox 98 02/16/25 15:04 Oxygen Delivery Method Room Air 02/16/25 15:04 Care Plan Goal for BP management: Within Goal Next steps: Continue to monitor BMI result Body Mass Index 31.4 Tobacco/Smoking Status: Tobacco use Status Tobacco use date assessed 02/16/25 02/16/25 15:08 Patient Tobacco Use Status Former Tobacco user 02/16/25 15:08 e-Cigarette/Vaping Use Former Use 02/16/25 15:08 PHQ-9: PHQ-9 Score PHQ-9: Total score 0 02/16/25 15:15 Depression Screening Interpretation: Negative Thrive Assessment: Date of Thrive Assessment Date Thrive assessed 02/16/25 02/16/25 15:08 Narrative Physical Exam General: Alert and oriented, Well nourished, No acute distress. Eye: Pupils are equal, round and reactive to light, Intact accommodation, Extraocular movements are intact, Normal conjunctiva, Vision unchanged. HENT: Normocephalic, Atraumatic, Tympanic membranes are clear, Normal hearing, Oral mucosa is moist, No pharyngeal erythema, Ear canals patent. Respiratory: Lungs CTA bilaterally, No wheeze, Respirations are non-labored. Cardiovascular: Regular rate, Regular rhythm, S1 auscultated, S2 auscultated, No murmur, Good pulses equal in all extremities, Normal peripheral perfusion, No edema. Gastrointestinal: Soft, Non-tender, Non-distended, Normal bowel sounds, No organomegaly. Musculoskeletal: Normal range of motion, Normal strength, No tenderness, No swelling, No deformity, Normal gait. Integumentary: Warm, Dry, Shoshoni, Intact. Neurologic: Alert, Oriented, Normal sensory, Normal motor function, No focal defects, Cranial Nerves II-XII are grossly intact, Normal deep tendon reflexes. Psychiatric: Cooperative, Appropriate mood & affect, Normal judgment. Coding Level of Care Code Est Pt Level 4 (58013) Add On Problem Visit Only Diagnoses Essential hypertension I10 Other hyperlipidemia E78.49 Hyperlipidemia type: other hyperlipidemia Psoriasis L40.9 Additional Codes NITO-7 Assessment Billing - NITO-7 Assessment Tool: NITO-7 Assessment 70341 ([id number]) PHQ-9 - 24525 - PHQ-9 Billing: Yes ([id number]) Assessment & Plan Assessment & Plan (1) Essential hypertension: Comment: - The patient's blood pressure is well-controlled at 126/82 mmHg on losartan 100 mg and hydrochlorothiazide. - He will continue the current medication regimen, and refills for both will be provided. Code(s): I10 - Essential (primary) hypertension Category: Medical (2) Hyperlipidemia: Comment: - The patient's LDL was 102 mg/dL in August after stopping atorvastatin. - Given his elevated cardiovascular risk due to coexisting hypertension, he should be on cholesterol medication. - Atorvastatin 20 mg will be restarted. Code(s): E78.5 - Hyperlipidemia, unspecified Category: Medical Qualifiers: Hyperlipidemia type: other hyperlipidemia Qualified Code(s): E78.49 - Other hyperlipidemia (3) Psoriasis: Comment: - The condition is reportedly well-controlled with Tremfya under the care of his felt tipping machine tender. - He will continue to follow up with his specialist. Code(s): L40.9 - Psoriasis, unspecified Category: Medical Plan: Health Maintenance: - Vaccinations: Up to date on COVID-19 and influenza shots for the year. - Lifestyle: He is physically active through walking and his job. Encouraged to continue current activities. - Follow-up: Scheduled to return in six months for an annual physical. Patient was informed and verbally consented to the use of an ambient scribe for clinic note documentation during this visit. Plan I discussed with the patient that his blood pressure is well-controlled on his current regimen of losartan and hydrochlorothiazide, and I will be providing refills for both. We reviewed his recent lab work, noting that while most results were stable and within normal limits, his cholesterol remains a concern. I explained that having both high blood pressure and high cholesterol places him at an elevated risk, and for this reason, it is important to resume cholesterol medication. We will restart atorvastatin at a 20 mg dose. His psoriasis appears to be well-managed under the care of his felt tipping machine tender. I commended him on his active lifestyle and encouraged him to continue what he is doing. We will follow up in six months for an annual physical, and he was advised to reach out if any concerns arise before then. Medications: New losartan 100 mg PO DAILY 90 tabs 1RF atorvastatin (Lipitor) 20 mg PO BEDTIME 90 tabs 1RF Refilled hydrochlorothiazide 25 mg PO DAILY 90 tabs 1RF Patient Instructions: - Continue taking losartan and hydrochlorothiazide as prescribed for your blood pressure. Refills have been sent to your pharmacy. - Restart taking atorvastatin 20 mg daily for your high cholesterol. It is important to take this to lower your risk of heart problems. - Continue following up with your felt tipping machine tender for your psoriasis. - Keep up with your current level of physical activity, such as walking and work-related activities. - Return for a follow-up visit in six months for your annual physical. - Please contact us if you have any questions or concerns before your next appointment.
[2025-02-16 15:04] VITALS: BP 126/82; PULSE 85; TEMP 36.3; O2SAT 98; BMI 31.4
--- OUTSIDE RECORDS SUMMARY | 2025-02-16 23:33 | XMS_ITS | Patient Health Record ---
Author Organization [facility] Address [address] [place] [address] Care Team Providers Care Mechanical Maintenance Engineer Name Role Phone Yahaira (RETIRED) Branden GARCIA Primary Care Provide Robert Cazares Unavailable [phone] Allergies Allergen (clinical drug ingredient) Drug/Non Drug Allergy documented on EMR Reaction Allergy Type Onset Date Status BEES SHELLFISH (uncoded) Unknown Allergy Active Results Component Value Reference Range Notes Pathology (Not yet reviewed by provider) Interpretation: Performing Lab:[facility], [address] [place] [id number] Notes/Report: Reason For Referral No Information Medications Medication SIG (Take, Route, Frequency, Duration) Notes Start Date End Date Status Atorvastatin Calcium 10 MG Tablet TAKE 1 TABLET BY MOUTH EVERY NIGHT Oral; Duration: 60 Active Tremfya 100 MG/ML Solution Prefilled Syringe Subcutaneous; Duration: 56 Active Losartan Potassium 50 MG Tablet TAKE 1 TABLET BY MOUTH EVERY DAY. Oral; Duration: 90 Active Georgie Allergy 180 MG Tablet 1 tablet Orally Once a day; Duration: 30 day(s) Active Immunizations Vaccine Route Administration Date Status Comme nts Influenza Unknown 03/10/2020 Administered Influenza Unknown 04/16/2022 Refused Social History Tobacco Use: Social History Observation Description Date Details (start date - stop date) Former Smoker NA - NA Social History Drugs/Alcohol: Social Info Question Answer Notes Alcohol Screen Did you have a drink containing alcohol in the past year? Yes How often did you have a drink containing alcohol in the past year? 4 or more times a week (4 points) How many drinks did you have on a typical day when you were drinking in the past year? 1 or 2 drinks (0 point) How often did you have 6 or more drinks on one occasion in the past year? Never (0 point) Points 4 Interpretation Positive Tobacco Use: Social Info Question Answer Notes Tobacco Use/Smoking Patient is a former smoker When did you stop smoking? 2006 How long has it been since you last smoked? > 10 years Additional Details Category Social Info Options Details Miscellaneous: Marital status: Occupation: [employer] Section Notes: Nonsmoker; 1 beer and Q drin k QD Nonsmoker; 1 beer and Q drin k QD Nonsmoker; occasional alcoho l Nonsmoker; occasional alcoho l Problems Problem Type SNOMED Code ICD Code Onset Dates Problem Status W/U Status Risk Notes Problem Colon cancer screening (438812948) Colon cancer screening (Z12.11) Active confirmed Problem Esophageal reflux (543134992) Esophageal reflux (K21.9) Active confirmed Problem Epigastric pain (47136408) Epigastric abdominal pain (R10.13) Active confirmed Problem History of polyp of colon (situation) (482667042) Personal history of colonic polyps (Z86.010) Active confirmed Problem Tinoco's esophagus (526992644) 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) Active confirmed Problem Gastroesophageal reflux disease without esophagitis (526729380) Gastroesophageal reflux disease without esophagitis (K21.9) Active confirmed Problem Hiatal hernia (14861526) Hiatal hernia (K44.9) Active confirmed Problem Gastroesophageal reflux disease (121703580) Gastroesophageal reflux disease, unspecified whether esophagitis present (K21.9) Active confirmed Vital Signs Blood pressure diastolic 00 mm Hg 04/20/2024 Height 71.75 in 04/20/2024 Blood pressure systolic 00 mm Hg 04/20/2024 Weight 224 lbs 04/20/2024 BMI 30.59 kg/m2 04/20/2024 Encounters Encounter Location Date Provider Diagnosis [facility] [address] [place], [place] [phone] 07/26/2024 Robert Snider Hiatal hernia K44.9 ; Gastro-esophageal reflux disease without esophagitis K21.9 and History of Tinoco's esophagus Z87.19 [facility] [address] [place] [address] 04/20/2024 Robert Snider Gastroesophageal ref lux disease, unspecified whether esophagitis present K21.9 ; Tinoco's esophagus without dysplasia K22.70 ; Colon cancer screening Z12.11 and Personal history of colonic polyps Z86.010 Assessments Encounter Date Diagnosis (ICD Code) Assessment Notes Treatment Notes Treatment Clinical Notes Section Notes 04/20/2024 Itnoco's esophagus without dysplasia (ICD-10 - K22.70) Overall, [...] to keep you advised of his progress. 07/26/2024 Gastro-esophageal reflux disease without esophagitis (ICD-10 - K21.9) 07/26/2024 Hiatal hernia (ICD-10 - K44.9) 04/20/2024 Colon cancer screening (ICD-10 - Z12.11) [...] to keep you advised of his progress. 07/26/2024 History of Tinoco's esophagus (ICD-10 - Z87.19) 04/20/2024 Personal history of colonic polyps (ICD-10 [...] ABD 08/03/2020 24 HR pH PROBE 12/06/2020 Pathology 07/26/2024 Future Test Test Name Order Date UPPER GI ENDOSCOPY 08/03/2020 COLONOSCOPY 04/16/2022 UPPER GI ENDOSCOPY 04/20/2024 Insurance Providers Payer Name Payer Address Payer Phone Subscriber Number Group Number Insured Name Patient Relationship to Insured Coverage Start Date Coverage End Date [facility] [employer] [address] [place] [address] [id number] IVELISSE PATRICK Self - patient is the insured Medical (General) History Medical History History ICD Code Denies [place],DM,CVA,Lung disease,renal dise ase ADHD-Dr. Sykes-improved with Adderal [...]
== END 2025-02-16 15:23 | disposition home or self-care (01) ==
LOC: HO.HMCHD 15:01
PROVIDERS: PCP Internal Medicine; Visit Provider Student in an Organized Health Care Education/Training Program
DX: I10 Essential (primary) hypertension (principal); E78.49 Other hyperlipidemia; L40.9 Psoriasis, unspecified

== ENCOUNTER → 2025-02-16 15:00 | Outpatient (BNVA) | payer BC, SELFPAY | PROVIDERS: PCP Internal Medicine; Visit Provider Student in an Organized Health Care Education/Training Program | DX: I10 Essential (primary) hypertension (principal); E78.49 Other hyperlipidemia; L40.9 Psoriasis, unspecified; Z79.899 Other long term (current) drug therapy; Z13.31 Encounter for screening for depression; Z13.39 Encounter for screening examination for other mental health and behavioral disorders | CPT/HCPCS: 96127 ==